=== PATIENT | male | born 1950 | race African-American/Black ===

== ENCOUNTER 2023-11-22 13:28 | Emergency (ER) | payer MEDICARE, SELFPAY ==
[2023-11-22] VITALS (15 sets, daily range): BP systolic 126–153; BP diastolic 63–87; PULSE 75–96; RESP 18–36; TEMP 36.6–36.9; O2SAT 97–99
--- NOTE | ~2023-11-22 | XR_ITS ---
EXAMINATION: XR chest 1V portable DATE: 11/22/2023 15:11 INDICATION: Dyspnea. TECHNIQUE: A single frontal view of the chest was obtained. COMPARISON: Chest 2 views 04/26/2014 FINDINGS: There is no pneumonia, pleural effusion, or pneumothorax. The heart size is normal. IMPRESSION: 1. No acute cardiopulmonary disease. Reviewed, dictated and finalized at location E.
--- NOTE | ~2023-11-22 | US_ITS ---
EXAMINATION: US venous doppler [facility] DATE: 11/22/2023 16:00 INDICATION: Lower limb swelling. TECHNIQUE: Grayscale ultrasound images without and with compression and Doppler ultrasound images of the bilateral lower extremity veins were obtained. COMPARISON: None. FINDINGS: The visualized portions of right common femoral vein, profunda (deep) femoral vein, femoral vein, pop liteal vein, peroneal veins, posterior tibial veins, and greater saphenous vein outflow are patent. The visualized portions of left common femoral vein, profunda femoral vein, femoral vein, popliteal v ein, peroneal veins, posterior tibial veins, and greater saphenous vein outflow are patent. IMPRESSION: 1. No deep venous thrombosis. Reviewed, dictated and finalized at location E.
--- NOTE | ~2023-11-22 | CT_ITS ---
EXAMINATION: CTA chest PE protocol DATE: 11/22/2023 16:15 INDICATION: Shortness of breath. TECHNIQUE: Computed tomography angiography (CTA) of the chest was performed with 100 mL Omnipaque-350 intravenous contrast timed to evaluate the pulmonary arteries. Coronal maximum intensity projection 3D-reconstructions were created by the technologist. Automated exposure control and iterative reconst ruction technique were employed. The dose-length product was 909.02 mGy-cm. COMPARISON: None. FINDINGS: There is mild emphysema. There is mild atelectasis bilaterally. There is a small right pleu ral effusion. The heart size is normal. No pericardial effusion. There is no pulmonary embolus. There is mild thoracic spondylosis. IMPRESSION: 1. No pulmonary embolus. 2. Small right pleural effusion. 3. Mild emphysema. Reviewed, dictated and finalized at location E.
--- NOTE | 2023-11-22 14:37 | ECG_ITS ---
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 Measurements Intervals [place] Rate: 79 P: 68 LA: 132 QRS: 70 QRSD: 90 T: 88 QT: 345 QTc: 396 Interpretive Statements SINUS RHYTHM NONSPECIFIC T-WAVE ABNORMALITY No previous ECG available for comparison Electronically Signed On 11-23-2023 12:04:26 CDT by Arjun Dan M.D.
[2023-11-22 15:07] LABS: Basophils Percent Auto 0.2 % (0.2-1.2); Eosinophils Absolute Auto 0.2 K/mm3 (0-0.3); Eosinophils Percent Auto 2.1 % (0-4.4); Hematocrit 23.5 % (42.0-52.0); Hemoglobin 7.5 g/dL (14.0-18.0); Immature Granulocyte Absolute 0.12 K/mm3 (0.00-0.031); Immature Granulocyte Percent A 1.3 % (0-0.5); Lymphocytes Absolute Auto 0.74 K/mm3 (0.9-3.2); Mean Corpuscular HGB Conc 31.9 g/dl (32-36); Mean Corpuscular Hemoglobin 29.6 pg (26-34); Mean Corpuscular Volume 92.9 fl (80-100); Mean Platelet Volume 9.1 fl (7.4-10.4); Monocytes Absolute Auto 0.7 K/mm3 (0.1-0.6); Monocytes Percent Auto 7.6 % (2.6-8.5); Neutrophils Absolute Auto 7.5 K/mm3 (1.3-6.7); Neutrophils Percent Auto 80.8 % (45.5-73.1); Nucleated Red Blood Cells Perc 0.3 % (0.0-0.2); Platelet Count Result 249 k/mm3 (150-375); Red Blood Count 2.53 M/mm3 (4.6-6.20); Red Cell Distribution Width 16.3 % (11.5-14.5); White Blood Count 9.3 K/mm3 (4.5-10.0)
[2023-11-22 15:16] LABS: Alanine Aminotransferase 10 U/L (6-50); Albumin Level 3.1 g/dL (3.5-5.1); Alkaline Phosphatase 74 U/L (38-126); Anion Gap 4 mmol/L (4-12); Aspartate Amino Transferase 20 U/L (17-59); Bilirubin,Total 0.8 mg/dL (0.2-1.3); Blood Urea Nitrogen 6 mg/dL (9-20); Calcium 8.1 mg/dL (8.4-10.2); Carbon Dioxide 30 mmol/L (22-30); Chloride 106 mmol/L (98-107); Estimated CRCL calculation 112 ml/min; Estimated Glomerular Filt Rate > 60; Glucose 116 mg/dL (65-110); Potassium 2.6 mmol/L (3.4-5.0); Sodium 140 mmol/L (137-145)
[2023-11-22 15:22] LABS: NT Pro B Type Natriuretic Pept 696 pg/mL (19.9-100)
--- NOTE | 2023-11-22 15:27 | ED.GENADULT ---
HPI - General Adult General Chief complaint: Shortness of Breath/Dyspnea Stated complaint: SOB, Leg Swelling Time Seen by Provider: 11/22/23 14:13 History of Present Illness HPI narrative: 73 old male presenting to the emergency department for evaluation for leg swelling and shortness of breath. Patient was just discharged from [facility] yesterday. Friday patient reports he had surgery to untangle is intestines, Friday she had returned surgery for a surgery on the actual intestines. Patient went back to surgery on Friday due to some bleeding he was having ultimately received 3 units transfused blood. Patient was discharged yesterday. Upon getting home family noticed that his legs were swollen. Patient feels legs have been swollen since Friday or . Patient states he does have history of asthma and has been using his albuterol inhaler more frequently. Patient denies any associated chest pain. Patient denies any prior history of DVT Related Data Home Medications Medication Instructions Recorded Confirmed cardioplegic no.32 (maint 8:1) 24 ml perfusion 01/04/20 mEq/300 mL (potassium) perfusion (Cardioplegia Maint 8:1 non-enrich) cholecalciferol (vitamin D3) 25 25 mcg PO DAILY 01/04/20 mcg (1,000 unit) capsule ferrous sulfate 325 mg (65 mg 325 mg PO DAILY 01/04/20 iron) tablet (Feosol) hydralazine 10 mg tablet 10 mg PO BID 01/04/20 montelukast 4 mg chewable tablet See Rx Instructions PO .COMPLEX 01/04/20 ggpktwex-iux-xzios acid 0.4 1 tablet PO DAILY 01/04/20 mg-lycopene 300 mcg-lutein 250 mcg tablet (Centrum Silver) multivitamin with iron (Daily 1 tablet PO DAILY 01/04/20 Vitamin with Iron tablet) omeprazole 20 mg capsule,delayed 20 mg PO DAILY 01/04/20 release propranolol 40 1 tablet PO DAILY 01/04/20 mg-hydrochlorothiazide 25 mg tablet sertraline 100 mg tablet 100 mg PO DAILY 01/04/20 triamcinolone acetonide 0.1 % 1 applic dental BID 01/04/20 dental paste triamcinolone acetonide 55 mcg 1 spray intranasal DAILY 01/04/20 nasal spray aerosol (Nasacort) [id number] pepper tablet PO 01/04/20 100 mg-200 unit-50 mg-800 mcg tablet vitamin B complex (B 1 tablet PO DAILY 01/04/20 Complex-Vitamin B12 tablet) wheat dextrin 3 gram/3.5 gram oral 1 packet PO DAILY 01/04/20 powder packet (Benefiber Clear Sugar Free(dextrin)) wheat dextrin 3 gram/4 gram oral 1.5 gm PO BID 01/04/20 powder (Benefiber Sugar Free (dextrin)) Allergies Allergy/AdvReac Type Severity Reaction Status Date / Time Penicillins Allergy Mild swelling Verified 01/04/20 13:26 eyelid, lips and hives Review of Systems Review of Systems: All systems reviewed & are unremarkable except as noted in HPI and below Exam Narrative: APPEARANCE: Well appearing, no pain, no distress, well-nourished. HEAD: normocephalic, atraumatic. EYES: PERRLA/EOMI, conjunctivae clear. NOSE: Normal no drainage EARS:TMS clear with good light reflex. THROAT: Pharynx clear, no exudate. NECK: Supple. No adenopathy, no masses. RESPIRATORY: Airway patent, respirations nonlabored. Clear to auscultation bilaterally, no rales, rhonchi, wheezing. CARDIOVASCULAR: Regular rate and rhythm without murmurs rubs or gallops. ABDOMINAL: Soft, nontender, nondistended, normal bowel sounds MUSCULOSKELETAL: Moves all extremities. Bilateral lower extremity pitting edema NEURO: Alert. Cranial nerves II through XII intact. Good gait. Good coordination SKIN: Warm, dry. Normal Color Course Vital Signs Vital signs: Vital Signs Temperature 98.5 F 11/22/23 13:29 Pulse Rate 83 11/22/23 13:29 Respiratory Rate 18 11/22/23 13:29 Blood Pressure 142/65 H 11/22/23 13:29 Pulse Oximetry 99 11/22/23 13:29 Oxygen Delivery Room Air 11/22/23 13:29 Temperature 97.8 F 11/22/23 17:46 Pulse Rate 91 11/22/23 17:46 Respiratory Rate 20 11/22/23 17:46 Blood Pressure 153/87 H
[2023-11-22] MEDS: KCL 20 MEQ/SW 100 ML 100 ML 50 MEQ IVPB (16:31)
[2023-11-22] MEDS: FUROSEMIDE INJ 40 MG/4 ML VIAL IV PUSH (16:32)
[2023-11-22] MEDS: POTASSIUM CHLORIDE 20 MEQ PACKET (FOR LIQUID) 40 MEQ PO ×2 (16:32→18:15)
--- NOTE | 2023-11-22 19:02 | PC.NURSE ---
BP cuff at this time while eating
--- NOTE | 2023-11-22 19:14 | PC.NURSE ---
Report received from MELODY Adams. Assumed care of patient at this time. Patient waiting for his potassium infusion to finish before discharge.
== END 2023-11-22 20:20 | disposition home or self-care (01) ==
PROVIDERS: Emergency Provider Emergency Medicine
DX: R60.0 Localized edema (principal); E87.6 Hypokalemia; D64.9 Anemia, unspecified
CPT/HCPCS: 36415; 71045; 71275; 80053; 83880; 85025; 93005; 93970; 96365; 96366; 96375; 99284; A9270; J1940; J3480; Q9967

== ENCOUNTER 2024-08-21 22:38 | Emergency (ER) | payer MEDICARE, SELFPAY ==
[2024-08-21 22:38] VITALS: BP 138/74; PULSE 74; RESP 17; TEMP 36.6; O2SAT 100
[2024-08-21 22:48] VITALS: O2SAT 100
[2024-08-21] MEDS: methylPREDNISolone SOD SUCC 125 MG VIAL IV PUSH (22:52)
[2024-08-21] MEDS: FAMOTIDINE 20 MG/2 ML VIAL IV PUSH (22:52)
[2024-08-21] MEDS: diphenhydrAMINE HCl INJ 50 MG/ML VIAL IV PUSH (22:53)
[2024-08-21] MEDS: ONDANSETRON INJ 4 MG/2 ML VIAL IV PUSH (22:58)
[2024-08-21] MEDS: TRANEXAMIC ACID 1,000 MG/10 ML AMPUL 1000 MG IV PUSH (23:00)
--- NOTE | 2024-08-21 23:31 | ED.ALLEREA ---
HPI - Allergic Reaction General Chief complaint: Allergic Reaction Stated complaint: ALLERGIC REACTION Time Seen by Provider: 08/21/24 22:39 History of Present Illness HPI narrative: Patient is a 74-year-old male who presents emergency department this evening complaining of upper lip swelling which he noticed when he woke up after a nap around 6:00 p.m. Patient states that he went to sleep around 3:30 p.m. and when he woke up he noticed some lip swelling. Patient admits that he is on lisinopril for blood pressure. Denies any similar symptoms in the past. Patient states that he has had mild swelling when he ate kd a few weeks ago and states that he has some kd today which he was concerned may have precipitated his. Denies any tongue swelling, difficulty breathing or any changes to his voice. No additional symptoms or concerns at this time. Related Data Home Medications ?Medication ?Instructions ?Recorded ?Confirmed ?Last Taken ?Type cardioplegic no.32 (maint 8:1) 24 ml perfusion 01/04/20 Unknown History mEq/300 mL (potassium) perfusion (Cardioplegia Maint 8:1 non-enrich) cholecalciferol (vitamin D3) 25 25 mcg PO DAILY 01/04/20 Unknown History mcg (1,000 unit) capsule ferrous sulfate 325 mg (65 mg 325 mg PO DAILY 01/04/20 Unknown History iron) tablet (Feosol) hydralazine 10 mg tablet 10 mg PO BID 01/04/20 Unknown History montelukast 4 mg chewable tablet See Rx Instructions PO .COMPLEX 01/04/20 Unknown History bmoclpyq-bld-trhhy acid 0.4 1 tablet PO DAILY 01/04/20 Unknown History mg-lycopene 300 mcg-lutein 250 mcg tablet (Centrum Silver) multivitamin with iron (Daily 1 tablet PO DAILY 01/04/20 Unknown History Vitamin with Iron tablet) omeprazole 20 mg capsule,delayed 20 mg PO DAILY 01/04/20 Unknown History release propranolol 40 1 tablet PO DAILY 01/04/20 Unknown History mg-hydrochlorothiazide 25 mg tablet sertraline 100 mg tablet 100 mg PO DAILY 01/04/20 Unknown History triamcinolone acetonide 0.1 % 1 applic dental BID 01/04/20 Unknown History dental paste triamcinolone acetonide 55 mcg 1 spray intranasal DAILY 01/04/20 Unknown History nasal spray aerosol (Nasacort) [id number] pepper tablet PO 01/04/20 Unknown History 100 mg-200 unit-50 mg-800 mcg tablet vitamin B complex (B 1 tablet PO DAILY 01/04/20 Unknown History Complex-Vitamin B12 tablet) wheat dextrin 3 gram/3.5 gram oral 1 packet PO DAILY 01/04/20 Unknown History powder packet (Benefiber Clear Sugar Free(dextrin)) wheat dextrin 3 gram/4 gram oral 1.5 gm PO BID 01/04/20 Unknown History powder (Benefiber Sugar Free (dextrin)) Allergies Allergy/AdvReac Type Severity Reaction Status Date / Time lisinopril Allergy Severe Swelling Verified 08/21/24 22:47 Penicillins Allergy Mild swelling Verified 08/21/24 22:47 eyelid, lips and hives Review of Systems Review of Systems: All systems are reviewed and are negative unless stated otherwise in the HPI. Exam Narrative: General: Alert, awake, afebrile, in no acute distress. HEENT: PERRL, no rhinorrhea, no post nasal drip, oropharynx clear, upper lip swelling consistent with angioedema, no tongue swelling, no evidence of any airway edema, no changes to voice. Neck: Trachea midline, no JVD, no lymphadenopathy. Cardiovascular: Regular rate and rhythm, no murmurs, rubs or gallops, no peripheral edema. Respiratory: Clear to auscultation bilaterally, no tachypnea, no wheezing, no rhonchi, no rubs, no respiratory distress. Abdomen: Soft, nontender, nondistended, no rebound, no guarding, no peritoneal signs. Musculoskeletal: No joint swelling or deformity, normal muscle tone. Skin: No rashes or petechia, no signs of infection. Psychiatric: Alert and oriented, normal behavior and judgment for situation. Neurological: Alert and oriented to person, place, and time. Follows all commands. No focal deficits, speech is clear and fluent. Course Vital Signs Vital signs: Vital Signs Temperature 97.8 F 08/21/24 22:38 Pulse Rate 74 08/21/24 22:38 Respiratory Rate 17 08/21/24 22:38 Blood Pressure 138/74 08/21/24 22:38 Pulse Oximetry 100 08/21/24 22:38 Oxygen Delivery Room Air 08/21/24 22:38 Temperature 97.8 F 08/22/24 04:15 Pulse Rate 93 08/22/24 04:15 Respiratory Rate 24 H 08/22/24 04:15 Blood Pressure 134/81 08/22/24 04:15 Pulse Oximetry 99 08/22/24 04:15 Oxygen Delivery Room Air 08/21/24 22:48 MDM - Allergic Reaction MDM Narrative Medical decision making narrative: The patient was evaluated by myself in the emergency department. History is obtained from patient who is an independent historian and physical exam was performed. External medical records were reviewed at this time. IV was established and pertinent tests were ordered. Patient was administered 125 mg of IV Solu-Medrol, 50 mg of IV Benadryl and 20 mg of IV Pepcid. Was also administered 1 g of TXA IV administered over 10 minutes and 2 units of FFP. Patient was observed in our emergency department for 5 hours with improvement of his symptoms. Symptoms are localized to the upper lip, no tongue swelling or any evidence of airway edema. Differential diagnosis considerations include allergic versus JUSTIN-inhibitor induced angioedema. Comorbidities impacting this visit include current lisinopril use. I have evaluated and discussed social determinants of health with the patient that could potentially impact subsequent diagnosis and treatment plans. On repeat assessment of the patient, reevaluation revealed that the patient is doing well and is in no acute distress. Patient symptoms have improved since he arrived to our emergency department. Repeat vital signs were all reviewed and noted to be stable. Differential diagnosis and treatment plan were discussed with the patient at bedside. Patient agrees with discussion and after shared medical decision making agrees with discharge. All questions were answered to the patient's satisfaction. Patient will follow up with his PCP in 3-5 days. Patient was provided with strict return precautions and instructed to return to the emergency department if any new or worsening symptoms develop. The patient was discharged in stable condition. Lab Data Labs: Lab Results 08/21/24 Range/Units 23:41 Blood Type A Positive Antibody Screen Negative Discharge Plan Discharge Clinical Impression: Angioedema, Swelling of upper lip Patient Disposition: Home, Self-Care Condition: Improved Instructions: Antibiotic Form, Angioedema (ED) Additional Instructions: You were evaluated in the emergency department this evening for your lip swelling and informed that this is called angioedema secondary to your lisinopril use and instructed that you can no longer take lisinopril after again as it could lead to recurrent episodes of angioedema which can cause airway occlusion and difficulty breathing. You will need to follow-up with your family doctor within the next 3 days to have your blood pressure medications switch to something else. Return to the emergency department if any new or worsening symptoms develop. Patient Language: Tajik Prescriptions: No Action triamcinolone acetonide [Nasacort] 55 mcg aerosol,spray 1 spray NASAL DAILY Rx Instructions: administer into each nostril omeprazole 20 mg capsule,delayed release(DR/EC) 20 mg PO DAILY propranolol-hydrochlorothiazid 40-25 mg tablet 1 tablet PO DAILY sertraline 100 mg tablet 100 mg PO DAILY hydralazine 10 mg tablet 10 mg PO BID montelukast 4 mg tablet,chewable See Rx Instructions PO .COMPLEX Rx Instructions: PO; triamcinolone acetonide 0.1 % paste 1 applic DENTAL BID Rx Instructions: use after food and/or drink and/or oral hygiene Benefiber Clear SF (dextrin) 3 gram/3.5 gram powder in packet 1 packet PO DAILY Rx Instructions: mix into at least 4 oz water or juice before administering multivitamin with iron [Daily Vitamin with Iron] Tablet 1 tablet PO DAILY Centrum Silver 0.4-300-250 mg-mcg-mcg tablet 1 tablet PO DAILY vitamin B complex [B Complex-Vitamin B12] Tablet 1 tablet PO DAILY vit [id number] ac-vmhq-gy-mcg tablet PO cholecalciferol (vitamin D3) 25 mcg (1,000 unit) capsule 25 mcg PO DAILY Benefiber Sugar Free (dextrin) 3 gram/4 gram powder 1.5 gm PO BID Rx Instructions: mix into at least 4 oz water or juice before administering Cardioplegia Main 8:1 no-enrch 24 mEq/300 mL (potassium) solution PERFUSION ferrous sulfate [Feosol] 325 mg (65 mg iron) tablet 325 mg PO DAILY Follow-up/Referrals: Amanda Vance DO [Physician] - 3 Days PHYSICIAN NOT ON STAFF,NONSTAFF [Primary Care Provider] - 3 Days Time of Disposition: 02:58
[2024-08-21 23:42] VITALS: BP 130/74; PULSE 68; RESP 27; O2SAT 100
--- NOTE | 2024-08-21 23:53 | PC.NURSE ---
Consent for plasma obtained
[2024-08-22] VITALS (11 sets, daily range): BP systolic 105–134; BP diastolic 57–81; PULSE 73–93; RESP 15–26; TEMP 36.4–36.8; O2SAT 95–100
[2024-08-22] MEDS: SODIUM CHLORIDE 0.9% IV 250 ML 30 ML IV CONT (01:45)
[2024-08-22] MEDS: TUBING, BLOOD PLUM PUMP TUBING 1 EACH XX (02:49)
== END 2024-08-22 05:19 | disposition home or self-care (01) ==
PROVIDERS: Emergency Provider Emergency Medicine
DX: T78.3XXA Angioneurotic edema, initial encounter (principal); T46.4X5A Adverse effect of angiotensin-converting-enzyme inhibitors, initial encounter; I10 Essential (primary) hypertension; Z79.899 Other long term (current) drug therapy
CPT/HCPCS: 36415; 36430; 86850; 86900; 86901; 96361; 96374; 96375; 99285; J1200; J2405; J2919; J7050; P9017

== ENCOUNTER 2024-10-25 22:30 | Observation (INO) | payer MEDICARE, SELFPAY ==
--- NOTE | ~2024-10-25 | CT_ITS ---
CT of the Abdomen and Pelvis: Indication: Lower GI bleed Technique: 2.5 mm axial scans were obtained through the abdomen and pelvis following intravenous adm inistration of 100 cc of Omnipaque 350. Dose reduction technique was used on this scan by utilizing a utomated exposure control and iterative reconstruction technique. The dose-length product (DLP) was 8 73.15 mGy-cm. Findings: Scans through the lung bases are unremarkable. Probable small hepatic cyst. The spleen, pancreas, gallbladder, adrenals and kidneys are within nelly l limits. There are atherosclerotic calcifications of the aorta. No lymphadenopathy. No bowel obstruction or bowel wall thickening. There is postoperative change of the sigmoid colon wit h colonic anastomosis present. Stool suggests constipation.. Images through the pelvis were performed. Urinary bladder unremarkable. No pelvic mass. No ascites. Impression: No distinct etiology for GI bleed seen. Postoperative changes of the sigmoid colon with suspected con stipation. Reviewed, dictated and finalized at location . Impression: No distinct etiology for GI bleed seen. Postoperative changes of the sigmoid co maia with suspected constipation.
--- OUTSIDE RECORDS SUMMARY | 2024-10-25 22:33 | XMS_ITS | Data Portability ---
Author Organization [place] - [facility], Main Office Address [address] [facility] [address] [place] [address] Care Team Providers Care Boil Off Worker Name Role Phone VIANEY SILVA Primary Care Provider Assessment No assessment recorded. Plan of Treatment Reminders Order Date Submit Date Provider Last Modified By Organization Details Last Modified Time Details Appointments None record ed. Lab None record ed. Referral None record ed. Procedures None record ed. Surgeries None record ed. Imaging None record ed. Medication Orders hydro2 5mg/li do10mg supp 019 08/27/19 19 INTERFACE [facility], [address] [facility] [address], [place], [place], [id number], 9 20:15:58 Patient TargetsNo targets recorded. Patient Instructions Encounter Date Encounter Id Patient Instructions Last Modified By Organization Details Last Modified Time 2018 [id number] constipation: care instructions Not available 07/05/2018 20:56:12 hemorrhoids: car e instructions Not available 07/05/2018 20:56:12 Patient counsele d to F/U immediately if temp. greater than 100.4, if is unable to urinate, increased rectal pain or any other concerns. Not available 07/05/2018 20:52:11 He will follow u p in 3 - 4 weeks and I will treat either his RP or RA (I doubt I will be able to treat both of them at 1 time). I discussed with him I do not know how many treatments we will do in this series - it just depends on how he does. If his bleeding does not improve, he may need to see a colon and rectal surgeon to consider a more invasive procedure (banding or surgery). On today's visit I spent a total of {{30 35 40 45* 50 55 60}} minutes [id number] with the patient and over 50% of this time was spent discussing treatment options, risks/benefits of each option and alternatives. Not available 07/05/2018 20:54:05 07/30/2018 [id number] constipation: care instructions Not available 07/30/2018 16:26:38 hemorrhoids: car e instructions Not available 07/30/2018 16:26:38 Patient counsele d to F/U immediately if temp. greater than 100.4, if is unable to urinate, increased rectal pain or any other concerns. Not available 07/30/2018 16:25:46 He will follow u p in 3 - 4 weeks and I will either retreat his LL or treat his RA (possibly both). We will probably do another couple of treatments after that but space them 6 - 8 weeks apart. Not available 07/30/2018 16:26:10 08/26/2018 [id number] constipation: care instructions Not available 08/26/2018 20:14:35 hemorrhoids: car e instructions Not available 08/26/2018 20:14:35 Patient counsele d to F/U immediately if temp. greater than 100.4, if is unable to urinate, increased rectal pain or any other concerns. Not available 08/26/2018 15:41:56 He will follow u p in 8 weeks and I will concentrate on his LL. I may be able to get some on his RA or RP. I discussed with him I want to see him every 8 weeks until we get his symptoms better. Not available 08/26/2018 20:16:11 10/21/2018 [id number] He will follow u p with me only as needed. Not available 10/21/2018 21:38:33 Reason for Referral None Reported. Problems Name Problem SNOMED Code Status Onset Date Resolution Date Notes Provider Name and Address Organization Details Recorded Time External hemorrhoids 72046277 Active 2012 MARTIN [facility]ira - [facility] 9 15:03:30 Pile easily reducible 692283489 Active 2012 Tx #1: 07/28/12 1.2 x 10 RPTx #2: 3 1.2 x 10 LLTx #3: 3 1.1 x 10 RATx #4: 3 1.2 x 10 RPTx #5: 3 1.2 x 10 LLTx #6: 3 1.1 x 8 RATx #7: 5 1.2 x 10 RPTx #8: 5 1.2 x 10 LLTx #9: 1.2 x 7 RATx #10: 1.2 x 8 LLTx #11: 1.2 x 8 RP and 1.2 x 5 RATx #12: 9 1.2 x 11 LLTx #13: 07/30/18 1.2 x 10 RPTx #14: 08/26/18 1.2 x 9 LL/: No Tx - He needs [facility] f[facility]ima[facility] mayi. [facility] 9 15:03:30 Constipation 88823088 Active 2018 Delfina Woods MD [address] [place] [address],[address], [place], [address], [facility] 9 20:49:49 History of polyp of colon 264452883 Active 2018 Perlita corado [facility] 9 15:03:30 Pile reducible with difficulty 408980180 Active 2018 Perlita corado [facility] 9 15:03:30 Problem Notes None recorded. Procedures Surgical History Date Name Laterality Status Provider Name and Address Organization Details Recorded Time 9 Colonoscopy completed Delfina Woods MD [address] [place] [address],[address], [place], [address], [facility] 05/24/2019 19:38:37 03/06/201 9 IRC completed Delfina Woods MD [address] [place] [address],[address], [place], [place], [address] [place] [address] Hemorrhoid [facility] 08/26/2018 20:13:18 9 IRC completed Delfina Woods MD [address] [place] [address],[address], [place], [place], [address] [place], [place] [address]oid [facility] 07/30/2018 16:23:44 9 IRC completed Delfina Woods MD [address] [place] [address],[address], [place], [place], [address] [place], [place] [address]oid [facility] 07/05/2018 20:46:21 6 Colonoscopy completed Delfina Woods MD [address] [place] [address],[address], [place], [place], [address] [place], [place] [address] [facility] 07/05/2018 20:42:51 1 Colonoscopy completed Delfina Woods MD [address] [place] [address],[address] [facility], [place], [place], [address] [place], [place] [address]oid [facility] 06/29/2018 18:48:27 Imaging Results None recorded. Procedure Notes None recorded. Medical Equipment None Reported. Allergies Allergen ID Allergen Name Allergen Category Reaction Reaction Severity Criticality Documentation Date Start Date Code Code System Note Provider Name and Address Organization Details Recorded Time 1895 Product containin g penicilli n (product) medicatio n Not available Not available Not available 2018 52052 8001 SNOMED [facility] 9 15:34:55 Medications Name Sig Start Date Stop Date Status Note LastModified by Organization Details LastModified Time [email or web address] [id number] Insert 1 suppository rectally TID prn 2018 active Not Available Not Available Not Avai lable hydralazine 10 mg tablet active Not Available Not Available Not Available sertraline 100 mg tablet active Not Available Not Available Not Available triamcinolon e acetonide 0.1 % topical cream active Not Available Not Available Not Available propranolol 10 mg tablet active Not Available Not Available Not Available triamterene 37.5 mg-hydrochlo rothiazide 25 mg tablet active Not Available Not Available Not Available omeprazole 20 mg capsule,guevara yed release active Not Available Not Available Not Available montelukast 10 mg tablet active Not Available Not Available Not Available sertraline active Not Available Not Av ailable Not Available omeprazole active Not Available Not Av ailable Not Available propranolol active Not Available Not A vailable Not Available hydralazine active Not Available Not A vailable Not Available montelukast active Not Available Not A vailable Not Available sildenafil active Not Available Not Av ailable Not Available triamterene active Not Available Not A vailable Not Available Vitals Date Recorded Body weight Body mass index (BMI) Body height Body temperature Respiratory rate Heart rate Systolic blood pressure Diastolic blood pressure Provider Name and Address Organization Details Last Updated DateTime 9 719322. 08 g 33.8 kg/m2 177.8 cm 97.9 [degF] 16 /min 73 /min 140 mm[Hg] 80 mm[Hg] [facility] 9 15:45:01 Date Recorded Body height Provider Name an d Address Organization Details Last Updated DateTime 07/30/2018 177.8 cm [facility] 07/30/2018 14:59:54 Date Recorded Body height Provider Name an d Address Organization Details Last Updated DateTime 08/26/2018 177.8 cm [facility] 08/26/2018 15:34:24 Date Recorded Body height Provider Name an d Address Organization Details Last Updated DateTime 10/21/2018 177.8 cm Perlitashanna Pedra[facility]Devlin [facility] 10/21/2018 14:53:01 Social History Question Answer Notes LastModified by Organizat ion Details LastModified Time Tobacco Smoking Status Former Smoker Quit 1988 Perlita [facility]lin [facility] 2018 15:38:41 How Much Tobacco Do You Chew? None [email or web address] Information not available 2018 Tobacco Amount/Day 2 Packs [email or web address] Information not available 2018 Alcohol Use Yes [email or web address] Information not available 2018 Alcohol Amount Occasional [email or web address] Information not available 2018 Caffeine Use No [email or web address] Informatio n not available 2018 Caffeine Type Coffee [email or web address] Informati on not available 2018 Caffeine Amount 2c/day [email or web address] Information not available 2018 Illicit Drug Use No [email or web address] Information not available 2018 Type Of Tobacco Cigs [email or web address] Information not available 2018 What Was The Date Of Your Most Recent Tobacco Screening? 10/21/2018 Information not available 01/14/2019 How Many Years Have You Smoked Tobacco? 19 [email or web address] Information not available 2018 Sex: Unknown Functional Status None recorded. Mental Status None recorded. Family History Relationship Description Onset Age of this Age Resolved Age Notes LastModified by Organization Details LastModified Time Mother Malignant tumor of breast 42 46 [email or web address] Not available 03/2019 15:38:08 Brother Malignant neoplasm of brain 68 68 [email or web address] Not available 03/2019 15:38:22 Medical History Condition Response Anxiety Disorder Y Asthma Y Reflux/GERD Y Sleep Apnea Y Hypertension Y Colon/Rectal Polyps Y Past Encounters Encounter ID Performer Location Encounter Start Date Encounter Closed Date Diagnosis/Indication Diagnosis SNOMED-CT Code Diagnosis ICD10 Code Diagnosis Note [id number] Delfina Woods MD Main Office [address] [facility] [address] [place] [address] 2018 15:26:29 2018 16:49:11 Pile easily reducible 000025932 K64.1 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 I reviewed full informed consent with him including risks/bene fits and alternativ es. He wanted to proceed with treatment. His 12th overall (1st in this series) treatment was done on his LL internal hemorrhoid . External hemorrhoids 239 43229 K64.4 These will improve with IRC. He understand s the only way to directly treat external hemorrhoid s would be with surgery and he does not wish to pursue this and his hemorrhoid s are not bad enough to require surgery. Constipation 91217378 K5 9.00 He of course needs to be eating a high fiber diet and drinking plenty of water. I reviewed the different fibers, stool softeners (docusate and Miralax) and stimulant laxatives (senna and bisacodyl - he should avoid taking these). He should take a stool softener and/or fiber to maintain soft BM's. History of polyp of colon 024783005 Z86.010 He thinks he is due for a colonoscop y this year. 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 His 13th overall (2nd in this series) treatment was done today on his RP internal hemorrhoid . External hemorrhoids 239 06256 K64.4 These will hopefully improve with IRC. He understand s the only way to directly treat external hemorrhoid s would be with surgery and he does not wish to pursue this and his hemorrhoid s are not bad enough to require surgery. Constipation 10243553 K5 9.00 He of course needs to be eating a high fiber diet and drinking plenty of water. For now he is going to just try to concentrat e on his diet. History of polyp of colon 182270843 Z86.010 He thinks he is due for a colonoscop y this year. 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 His 14th overall (3rd in this series) treatment was done today on his LL internal hemorrhoid . External hemorrhoids 239 17175 K64.4 Improved with IRC. He wanted to try the compounded hydrocorti sone/lidoc marco antonio suppositor ies. Constipation 20315474 K5 9.00 He of course needs to be eating a high fiber diet and drinking plenty of water. He should continue with the Bene Fiber. I wrote down docusate 100 mg gel caps - he can take up to 3 daily if needed. [id number] Delfina Woods MD Main Office [address] [facility] [address] [place] [address] 10/21/2018 14:48:38 10/21/2018 15:37:38 Pile reducible with difficulty 084242673 K64.2 I discussed with him that even though he has done well with infrared coagulatio n treatments over the years, I think we have reached the limit of what can be accomplish ed with IRC. He also had the heavy bleeding after his last treatment and continues to have light bleeding 2 months later. Given the size of his hemorrhoid s, I think he needs to at least talk to a surgeon about banding or possibly a hemorrhoid ectomy. I recommende d that he see Fariha Moon MD (Fajardo) (colon and rectal surgeon with [facility]) and gave him her contact tara see. He has appointmen t with his PCP in a couple of weeks and is going to discuss with him if there are any surgeons in [place] that he could see (I am not aware of any colon and rectal surgeons but do know there are some general surgeons who do hemorrhoid ectomies). I asked him to let me know who he ends up seeing so I can get records to them. Constipation 67938554 K5 9.00 He of course needs to be eating a high fiber diet and drinking plenty of water. He should continue with the Bene Fiber. He also needs to get the docusate 100 mg gel caps that we have discussed on his previous visits - he can take up to 3 daily if needed. History of polyp of colon 054902703 Z86.010 He thinks he is due for a colonoscop y this year. I advised he needs to discuss this with his PCP when he has his visit in a couple of weeks. Health Concerns Section Related Observation LastModified by Organization Jazmine alba LastModified Time None Recorded Concern Status LastModified by Organization Details LastModified Time None Recorded Advance Directives Directive None Recorded Payers Encounter Date Sequence Insurance Name Policy Number Policy Briseno Covered Member ID Briseno Member ID Guarantor Name 2018 1 [facility] (MEDICARE REPLACEMENT/A DVANTAGE - HMO) [id number] Wayne A Dace [id number] Wayne A Dace 07/30/2018 1 [facility] (MEDICARE REPLACEMENT/A DVANTAGE - HMO) [id number] [place] A Dace [id number] Wayne A Dace 08/26/2018 1 [facility] (MEDICARE REPLACEMENT/A DVANTAGE - HMO) [id number] Wayne A Dace [id number] Wayne A Dace 10/21/2018 1 [facility] (MEDICARE REPLACEMENT/A DVANTAGE - HMO) [id number] Wayne A Dace [id number] Wayne A Dace Notes Date Note Type Note Provider Name and Address Organization Details Recorded Time 2018 text/html See previous visits. He has been doing great since his last treatment on 05/05/15. He would see a minimal amount of bright red blood on the wipe only occasionally. He has no swelling or discomfort. His symptoms returned about 6 months ago and have worsened. He presents today for an evaluation and treatment if it will help. Bleeding: This is his main symptom. Initially (6 months ago) it was a small amount of bleeding but was persistent. Over the last 1 - 2 months the amount of blood with BM's has increased. Over the last 2 weeks he has had a large amount of blood in the water with a BM 3 times. It would take several minutes to get it to stop. He has not had the heavy bleeding for about 1 week. Pain: Not really Itching: Not really Discharge: It is always hard to get clean after BM's because of swelling and irritation. He has had some difficulty staying clean - he has had to re-wipe shortly after a BM. He has not had drainage bad enough that he has to wear a pad. Prolapse: Not that he feels External swelling: He does have some external swelling but it does not bother him. Discomfort: He has some minor external irritation/discomfo rt. He has internal pressure, a sense of being blocked when trying to have a BM and a sense of incomplete emptying after BM's. Previous Hemorrhoid Treatment: He has only had the C treatments here. Previous Lower GI Endoscopy: He had a colonoscopy in 2016 and had polyps. He will be due sometime this year he thinks. Bowel Habits: He has had long standing 2 - 3 times daily BM's and they are usually soft. He can have some firm BM's depending on his diet. He does take a stool softener when he needs to - he thinks he is taking docusate but it might be docusate with senna; he is not sure. Delfina Woods MD [address] [place] [address],[address], [place], [address], [facility] [place] 07/05/2018 20:56:15 07/30/2018 text/html Follow up: He is better than he had been before his treatment on 07/02. He has had episodes of bleeding with BM's but they have not been as heavy - he has mostly blood on the wipe and a few times slight drip in the water. He has had no leakage of blood in between BM's. He has had more discomfort and irritation over the last couple of weeks. He has been having more bowel irregularity. He states he does not recall me going through all of the OTC products (stool softeners, fiber and laxatives) at our last visit. He has not been taking any products. He admits his diet has been much more irregular - he will not eat all day and then eat at 8 pm. Delfina Woods MD [address] [place] [address],[address], [place], [address], [facility] [place] 07/30/2018 16:26:40 08/26/2018 text/html Follow up: He grant s still had discomfort with BM's and some after BM's. He has an ache and throbbing sensation. He takes ibuprofen and it does improve. He has tried Preparation H but it does not really help. His bleeding is significantly better. He has had no heavy bleeding. He has had some spots of dark blood on the wipe with some BM's (and this is getting less frequent). He still has some difficulty getting clean due to some swelling and irritation. He has a scant amount of leakage shortly after BM's but it does not last long and it is not very much. Overall he feels he is doing well. He did start a low dose of Bene Fiber and his BM's are better. He asks me again to write down the stool softener. Delfina Woods MD [address] [place] [address],[address], [place], [address], [facility] [place] 08/26/2018 20:16:42 10/21/2018 text/html Follow up: See l ast visit and phone note from 08/31/18. He states that the heavy bleeding did stop after the 2 episodes. He did go to the ER but states they didn't really do anything . He has had light bleeding with BM's on the wipe since the last treatment. He has no leakage of blood. He has had some swelling and discomfort especially after BM's and this can last for a few hours afterward. He has been taking Bene Fiber but still has not gotten the docusate like I have instructed him to do at his last few visits. His BM's can be somewhat firm. Delfina Woods MD [address] [facility],[address], [place], [address], [facility] [place] 10/21/2018 21:41:09
--- OUTSIDE RECORDS SUMMARY | 2024-10-25 22:33 | XMS_ITS | Encounter Summary ---
Author Organization [facility] Address [address] [place] [address] Care Team Providers Care Ichthyologist Name Role Phone Michael Black DO Primary Care Provider + Jnaeth Carrillo [facility] Unavailable Sunitha Jurado LPN Unavailable [phone] Encounter Details Date Type Department Care Team ([facility] st Contact Info) Description 11/14/2023 Telephone [facility] Primary Care [facility] [address] [address] Michael Black DO [address] [place] [address] Social History Tobacco Use Types Packs/Day Years Used Date Smoking Tobacco: Former Cigarettes 1.3 19 1 0 - 1988 Pipe Cigars Smokeless Tobacco: Never Alcohol Use Standard Drinks/Week Comments Not Currently 0 (1 standard drink = 0.6 oz pur e alcohol) AUDIT-C Answer Date Recorded Q1: How often do you have a drink containing alc ohol? Monthly or less 11/14/2023 Q2: How many drinks containi ng alcohol do you have on a typical day when you are drinking? 1 or 2 11/14/2023 Q3: How often do you have si x or more drinks on one occasion? Never 11/14/2023 PHQ-2 Answer Date Recorded PHQ-2 Total Score (If total score is 3 or more points, staff should administer the PHQ-9) 0 09/16/2022 Personal Safety Answer Date Recorded Have you ever been in or are you currently in a harmful physical or emotional relationship or is someone making you feel afraid or unsafe? Denies 11/14/2023 Sex and Gender Information Value Date Recorded Sex Assigned at Not on file Legal Sex Male 6:05 AM BRIM ROUNDER Gender Identity Male 12/12/2020 10:13 AM CDT Sexual Orientation Straight 12/12/2020 10 :13 AM CDT documented as of this encounter Functional Status * Audit-C Score Answer Date of Assessment Author 1 11/14/2023 2:37 PM JEAN PAULT Pan Hyde RN * Question Answer Date of Assessment Author Q1: How often do you have a drink containing alcohol? Monthly or less 11/14/2023 2:37 PM Linnette Canada RN Q2: How many drinks containing alcohol do you have on a typical day when you are drinking? 1 or 2 11/14/2023 2:37 PM Linnette Canada RN Q3: How often do you have six or more drinks on one occasion? Never 11/14/2023 2:37 PM Linnette Canada RN documented as of this encounter Plan of Treatment Not on file documented as of this encounter Visit Diagnoses Not on filedocumented in this encounter Care Teams Ichthyologist Relationship Specialty Start Date End Date Michael Black DO [address] [address] PCP - General Family Medicine 12/29/19 Janeth Carrillo RPh [address] [facility] [address] [address] [place] [address] Pharmacist Pharmacy 06/05/23 12/29/23 Sunitha Jurado LPN [address] [facility] [address] [facility] [address] [place] [address] [employer] 11/24/23 11/24/23 documented as of this encounter
--- OUTSIDE RECORDS SUMMARY | 2024-10-25 22:33 | XMS_ITS | Clinical Summary ---
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 7:02 PM TAX MANAGER us Michael Black DO LAB URINE ORDERABLES Fin al Result JOSHUA [address] [facility] Department [place] [address] * COLONOSCOPY (01/29/2023 2:01 PM CDT) Anatomical Region Laterality Modality Other Narrative Procedure Note Berenice Howe MD - 01/29/2023 2:01 PM CDT [facility] GI ENDOSCOPY Patient Name: Wayne Zhao Procedure Date: 01/29/2023 2:01 PM Date of : 1950 Admit Type: Outpatient Age: 72 Gender: Male Attending MD: Berenice Howe M.D. Room: [facility] ENDOSCOPY ROOM 05 Note Status: Finalized Procedure: Colonoscopy Indications: High risk colon cancer surveillance: Personalhistory of colonic polyps Referring MD: Providers: Berenice Howe M.D. Medicines: See the Anesthesia note for documentation of the administered medications Complications: No immediate complications. Estimated Blood Loss: Estimated blood loss was minimal. Procedure: The benefits, risks and alternatives of theprocedure and sedation were discussed and informed consentwas obtained. All questions were answered. Please referto the signed informed consent document in the medical record. The scope was passed under direct vision.The [id number] colonoscope was introduced through theanus and advanced to the cecum, identified byappendiceal orifice and ileocecal valve. The colonoscopy was performed without difficulty. The patient tolerated the procedure well. The quality of the bowel preparation was adequate to identify polyps 6 mmand larger in size. Findings: Hemorrhoids were found on perianal exam. Two polyps were found in the transverse colon. The polyps were 5 mmin size. These polyps were removed with a hot biopsy forceps. Resectionand retrieval were complete. Patient had significant retained stool that repeatedly clogged the scope, especially in the cecum. This limited evaluation for small lesions. Impression: - Hemorrhoids found on perianal exam. - Two 5 mm polyps in the transverse colon, removed with a hot biopsy forceps. Resected andretrieved. Recommendation: - Repeat colonoscopy in 3 years for surveillance. - No aspirin, ibuprofen, naproxen, or other non-steroidal anti-inflammatory drugs for 5 days. Berenice Howe M.D. Berenice Howe M.D. 01/29/2023 2:39:52 PM . Number of Addenda: 0 Note Initiated On: 01/29/2023 2:01 PM Recognized by the [place] [employer] for promoting quality in endoscopy us Berenice Howe MD ENDOSCOPY PROCEDURES Final Resul t * PSA screen (10/17/2022 2:35 PM CDT) PSA-Total 4.27 <=6.20 ng/mL JOSHUA BRAVO Comment: Interpretive Data AGE SEX REFERENCE INTERVAL 0 minutes-150 years Female None 0 minutes-49 years Male None 50-59 years Male 0-3.90 60-69 years Male 0-5.40 70-79 years Male 0-6.20 80-150 years Male 0-6.20 The Donaldo PSA Total assay procedure was used. Results from different manufacturers or methods may not be comparable. Serial testing should be performed using the same method. Current interpretive data last revised 21. Testing performed by: [address] [address] Blood 10/17/2022 2:35 PM CDT 10/17/2022 4:34 PM CDT Michael Henderson Black LAB BLOOD ORDERABLES Fin al Result Performing Organization Address [facility] [[email or web address]] de Phone Number [place] [phone] [facility] [employer] [place], [place] [phone] * (ABNORMAL) Hemoglobin A1c (10/17/2022 2:35 PM CDT) Hgb A1C 5.9(H) 4.0 - 5.6 % JOSHUA Comment:Testing performed by : [address] [address] Estimated Average Glucose 123 mg/dL JOSHUA Comment: The ADA recommends reporting an estimated Average Glucose (eAG) with all Hemoglobin A1c results using the equation derived from a study of 507 normal and diabetic adults. Minority populations were underrepresented and children were not included. (Diabetes Care 31:5916-5692, 2008). The eAG is not equivalent to a fasting glucose. Testing performed by: [address] [address] Blood 10/17/2022 2:35 PM CDT 10/17/2022 4:34 PM CDT Michael Black LAB BLOOD ORDERABLES Fin al Result Performing Organization Address [facility] [[email or web address]] de Phone Number [facility] [address] [facility] [place] [address] * Lipid panel (10/17/2022 2:35 PM CDT) Cholesterol 160 30 - 199 mg/dL JOSHUA Comment: Interpretive Data Ages < or = 19 years Acceptable: <170 mg/dL Borderline high: 170-199 mg/dL High: >or= 200 mg/dL Ages > or = 20 years Desirable: <200 mg/dL Borderline high: 200-239 mg/dL High: >or= 240 mg/dL Literature References: 1. Expert Panel on Integrated Guidelines for Cardiovascular Health and Risk Reduction in Children and Adolescents. Pediatrics 2011;128:S213 2. NCEP Expert Panel. Circulation 2004;110:227 Current Interpretive Data was last revised on 2018. Testing performed by: [address] [address] Triglycerides 83 <=149 mg/dL JOSHUA Comment: Interpretive Data Ages < or = 9 years Acceptable: <75 mg/dL Borderline high: 75-99 mg/dL High: >or= 100 mg/dL Ages 10 to 20 years Acceptable: <90 mg/dL Borderline high: 90-129 mg/dL High: >or= 130 mg/dL Ages > or = 20 years Desirable: <150 mg/dL Borderline high: 150-199 mg/dL High: 200-499 mg/dL Very high: >or= 499 mg/dL Literature References: 1. Expert Panel on Integrated Guidelines for Cardiovascular Health and Risk Reduction in Children and Adolescents. Pediatrics 2011;128:S213 2. NCEP Expert Panel. Circulation 2004;110:227 Current Interpretive Data was last revised on 2018. Testing performed by: [address] [address] HDL 49 >=40 mg/dL JOSHUA Comment: Interpretive Data Ages < or = 19 years Acceptable: >45 mg/dL Borderline low: 40-45 mg/dL Low: <40 mg/dL Ages > or = 20 years Desirable: >or= 60 mg/dL Low: <40 mg/dL Literature References: 1. Expert Panel on Integrated Guidelines for Cardiovascular Health and Risk Reduction in Children and Adolescents. Pediatrics 2011;128:S213 2. NCEP Expert Panel. Circulation 2004;110:227 Current Interpretive Data was last revised on 2018. Testing performed by: [address] [address] LDL, calculated 94 <=129 mg/dL JOSHUA Comment: Interpretive Data Ages < or = 19 years Acceptable: <110 mg/dL Borderline high: 110-129 mg/dL High: >or= 130 mg/dL Ages > or = 20 years Optimal: <100 mg/dL Near optimal: 100-129 mg/dL Borderline high: 130-159 mg/dL High: >160 mg/dL Literature References: 1. Expert Panel on Integrated Guidelines for Cardiovascular Health and Risk Reduction in Children and Adolescents. Pediatrics 2011;128:S213 2. NCEP Expert Panel. Circulation 2004;110:227 Current Interpretive Data was last revised on 2018. Testing performed by: [address] [address] Non-HDL Cholesterol 111 mg/dL JOSHUA Comment: Interpretive Data Ages < or = 19 years Acceptable: <120 mg/dL Borderline high: 120-144 mg/dL High: >145 mg/dL Ages > or = 20 years When triglycerides are >200 mg/dL, Non-HDL cholesterol is a secondary target of therapy with treatment goals that are 30 mg/dL greater than the LDL cholesterol target. Literature References: 1. Expert Panel on Integrated Guidelines for Cardiovascular Health and Risk Reduction in Children and Adolescents. Pediatrics 2011;128:S213 2. NCEP Expert Panel. Circulation 2004;110:227 Current Interpretive Data was last revised on 2018. Testing performed by: [address] [address] Chol/HDL ratio 3 JOSHUA Comment:Testing performed by : [address] [address] Blood 10/17/2022 2:35 PM CDT 10/17/2022 4:34 PM CDT Narrative JOSHUA - 10/17/2022 5:52 PM CDT Has the patient been fasting for 8 hours or more?->Yes us Michael Black DO LAB BLOOD ORDERABLES Fin al Result JOHSUA BRAVO [address] [facility] [place] [address] * Hepatitis C antibody (10/31/2021 5:22 PM CDT) Hep C Ab Nonreactive Nonreactive JOSHUA BRAVO Comment: Interpretive Data Nonreactive: Antibodies to HCV not detected. Does NOT exclude the possibility of recent exposure to HCV. Equivocal: Equivocal for HCV antibodies. Supplemental molecular testing will be automatically performed to determine infection status in accordance with current CDC screening recommendations. Reactive: Positive for HCV antibodies. This may represent current or past HCV infection. Supplemental molecular testing will be automatically performed to determine current infection status in accordance with current CDC screening recommendations. Interpretive data was last revised on 2019. Blood 10/31/2021 5:22 PM CDT 10/31/2021 6:34 PM CDT us Michael Black DO LAB MICROBIOLOGY - GENER AL ORDERABLES Final Result JOSHUA BRAVO [address] [facility] Department [place] [address] from Last 3 Months or Most Recently Relevant to Health Maintenance Insurance [facility] MEDICARE ADVANTAGE [facility] MEDICARE ADVANTAGE [facility] MEDICARE ADVANTAGE Advance Directives For more information, please contact: [phone] * Full Code (Latest Code Status on File) Date Activated Date Inactivated Comments 11/19/2023 12:55 PM 11/21/2023 5:00 PM * Full Code Date Activated Date Inactivated Comments 11/10/2023 2:25 PM 11/19/2023 12:55 PM * Full Code Date Activated Date Inactivated Comments 11/10/2023 6:39 AM 11/10/2023 2:25 PM Care Teams Frame Polisher Relationship Specialty Start Date End Date Micheal Black DO [address] [address] PCP - General Family Medicine 12/29/19
--- OUTSIDE RECORDS SUMMARY | 2024-10-25 22:33 | XMS_ITS | Encounter Summary ---
Author Organization [facility] Facility Care Team Providers Care Rehabilitation Services Counselor Name Role Phone Michael Black DO Primary Care Provider + Janeth Carrillo [facility] Unavailable Sunitha Jurado LPN Unavailable [phone] Encounter Details Date Type Department Care Team (Latest Contact Info) Description 2018 Orders Only [facility] CLINCONV ProviderPlacido MD [address] [place] [address] Social History Tobacco Use Types Packs/Day Years Used Date Smoking Tobacco: Former Sex and Gender Information Value Date Recorded Sex Assigned at Not on file Legal Sex Male 6:05 AM DAY CARE CENTER DIRECTOR Gender Identity Male 12/12/2020 10:13 AM CDT Sexual Orientation Straight 12/12/2020 10 :13 AM CDT documented as of this encounter Plan of Treatment Not on file documented as of this encounter Procedures Procedure Name Priority Date/Time Associated Diagnosis Comments PROCEDURE - RESULT 07/07/2018 12 :00 AM DAY CARE CENTER DIRECTOR documented in this encounter Results * PROCEDURE - RESULT (07/07/2018 12:00 AM DAY CARE CENTER DIRECTOR) Narrative 07/07/2018 12:00 AM DAY CARE CENTER DIRECTOR Ordered by an unspecified provider. us Historical Provider MD Final Res ult documented in this encounter Visit Diagnoses Not on filedocumented in this encounter Care Teams Rehabilitation Services Counselor Relationship Specialty Start Date End Date Michael Black DO [address] [address] PCP - General Family Medicine 12/29/19 Janeth Carrillo RPh [address] [place] [address] [address] [place] [address] Pharmacist Pharmacy 06/05/23 12/29/23 Sunitha Jurado LPN [address] [place] [address] [address] [place] [address] Assembler Equipment 11/24/23 11/24/23 documented as of this encounter
--- OUTSIDE RECORDS SUMMARY | 2024-10-25 22:33 | XMS_ITS | Referral Summary ---
Author Organization [facility] Address [address] [place] [address] Care Team Providers Care Friction Welding Machine Operator Name Role Phone Michael Black DO Primary Care Provider + Encounters Date Type Department Care Team Description 08/30/2024 7:30 AM CDT Office Visit [facility] Primary [facility] [address] [place] [address] [place] [phone] Michael Black DO Primary hypertension (Primary Dx); Type 2 diabetes mellitus without complication, without long-term current use of insulin (HCC); DAMIAN (obstructive sleep apnea); Parkinson's disease with dyskinesia and fluctuating manifestations (HCC); Essential hypertension 08/23/2024 Telephone [facility] [address] [place] [address] [place] [phone] Michael Black DO Appointment Request 08/11/2024 Telephone [facility] Pulmonology [address] [place] [address] [place] [phone] Delaney Plummer MA from Last 3 Months Allergies Active Allergy Reactions Criticality Noted Date [...] 03/15/2020 Assessment & Plan (05/29/2022 4:38 PM FISCAL CLERK): Impression: Diabetes mellitus with good glucose control. [...] mg. Assessment & Plan (05/29/2022 4:39 PM FISCAL CLERK): Impression: Chronic hypertension, controlled medications. Blood pressure [...] month. Assessment & Plan (05/29/2022 4:38 PM FISCAL CLERK): Impression: Patient complains of pain and tenderness [...] proceed. Assessment & Plan (05/01/2022 11:10 AM FISCAL CLERK): Impression: Painful varicose veins of both lower [...] fasting glucose) 07/22/2018 09/04/2020 Palpitations 05/10/2014 02/14/2020 Immunizations Immunization Administration Dates Next Due Influenza, Quad, Adjuvantate d, Intramuscular 07/12/2021 Influenza, Quadrivalent, Carmen l Culture-based MDCK, Preservative Free, Antibiotic Free, Intramuscular 04/17/2022 Influenza, Unspecified 04/23/2024(Deferr ed: Patient decision),04/23/2019 Pneumococcal Polysaccharide PPV23 08/29/2014 Tdap 06/23/2010 ZOSTER Recombinant 11/22/2022 Social History Tobacco Use Types Packs/Day Years [...] on file Legal Sex Male 6:05 AM FISCAL CLERK Gender Identity Male 12/12/2020 10:13 AM CDT Sexual Orientation Straight 12/12/2020 10 :13 AM CDT Last Filed Vital Signs Vital Sign Reading [...] 08/30/2024 7:32 AM CDT Plan of Treatment Not on file Medical Devices Implanted Type Area Die Mechanic Device Identifier Shelf Expiration Date Model / [...] CREATININE RATIO, URINE Routine 07/21/2023 6:15 PM FISCAL CLERK Type 2 diabetes mellitus without complication, without [...] Diabetic Eye Exam (03/02/2024 8:31 AM CDT) us Historical Provider HEALTH MAINTENANCE Final Result * [...] was last reviewed 2021. Testing performed by: [facility], [address] [place] [address], [place]., [address] Blood 11/28/2023 11:1 2 AM CDT 11/28/2023 1:46 PM CDT us Caryl Snyder MOBILE MARKETING MANAGER LAB BLOOD ORDERABLES Final Res ult [facility] [address] [employer] Department [place] [address] * Flexible Sigmoidoscopy (11/19/2023 3:09 PM CDT) Anatomical Region Laterality Modality Other Narrative Procedure Note Modesta Moseley MD - 11/19/2023 3:09 PM CDT [facility] Patient Name: Wayne Zhao Procedure Date: 11/19/2023 3:09 PM Date of : 1950 Admit Type: Inpatient Age: 73 Gender: Male Attending MD: Modesta Moseley M.D. Room: [facility] ENDOSCOPY Note Status: Finalized Procedure: Flexible Sigmoidoscopy Indications: Hematochezia Referring MD: Forest Graves M.D. Providers: Modesta Moseley M.D., Marty Norman M.D. Comorbidities 73 y.o. male DM, GERD, HTN, asthma, mood disorder, history of adenomatous colon polyps, chronic constipation, paget's disease ofthe breast, HLD who was admitted to [facility] on 11/10/2023 as transfer from outside [...] and informed consentwas obtained. The GIF [id number] endoscope was introduced through the anus and [...] 0 Note Initiated On: 11/19/2023 3:09 PM Modesta Moseley MD ENDOSCOPY PROCEDURES Final Result * CT Abdomen Pelvis W WO Contrast (11/17/2023 10:49 AM CDT) Anatomical Region Laterality Modality Body N/A Computed Tomogra phy 11/17/2023 11:2 1 AM CDT Impressions 11/17/2023 1:02 PM CDT No evidence of active gastrointestinal hemorrhage. Postoperative changes of sigmoid colectomy with diffuse colonic dilatation likely related to postoperative ileus. Dictated by: Yuli Camacoh M.D. The radiology attending physician has personally [...] Albumin Creatinine Ratio, Urine (07/21/2023 6:15 PM FISCAL CLERK) Albumin Ur 48.0 mg/L JOSHUA BRAVO Comment: Interpretive Data No reference range established. Current interpretive data was last revised 2018. Testing performed by: [facility] [address] [address] Creatinine Ur 86.6 mg/dL JOSHUA Comment: Interpretive Data No reference range established. Current interpretive data was last revised 2018. Testing performed by: [address] [address] Albumin Creatinine Ratio, Ur 55(H) 1 - 29 mg/g JOSHUA Comment:Testing performed by : [address] [address] Urine 07/21/2023 6:15 PM FISCAL CLERK 07/21/2023 7:02 PM FISCAL CLERK us Michael Black DO LAB URINE ORDERABLES Fin al Result JOSHUA [address] [facility] Department [place] [address] * COLONOSCOPY (01/29/2023 2:01 PM CDT) Anatomical Region Laterality Modality Other Narrative Procedure Note Berenice Howe MD - 01/29/2023 2:01 PM CDT [facility] GI ENDOSCOPY Patient Name: Wayen Zhao Procedure Date: 01/29/2023 2:01 PM Date of : 1950 Admit Type: Outpatient Age: 72 Gender: Male Attending MD: Berenice Howe M.D. Room: [facility] ENDOSCOPY ROOM 05 Note Status: Finalized Procedure: [...] On: 01/29/2023 2:01 PM Recognized by the [place] [employer] [place] [employer] Gastrointestinal Endoscopy for promoting quality in endoscopy Berenice Howe MD ENDOSCOPY PROCEDURES Final Resul t * PSA screen (10/17/2022 2:35 PM CDT) PSA-Total 4.27 <=6.20 ng/mL JOSHUA Comment: Interpretive Data AGE SEX REFERENCE INTERVAL [...] data last revised 21. Testing performed by: [address] [address] Blood 10/17/2022 2:35 PM CDT 10/17/2022 4:34 PM CDT Michael Black DO LAB BLOOD ORDERABLES Fin al Result [facility] [address] [facility] Department [place] [address] * (ABNORMAL) Hemoglobin A1c (10/17/2022 2:35 PM CDT) Hgb A1C 5.9(H) 4.0 - 5.6 % JOSHUA Comment:Testing performed by : [address] [address] Estimated Average Glucose 123 mg/dL JOSHUA Comment: The ADA recommends reporting an estimated Average Glucose (eAG) with all Hemoglobin A1c results using the equation derived from a study of 507 normal and diabetic adults. Minority populations were underrepresented and children were not included. (Diabetes Care 31:7600-0026, 2008). The eAG is not equivalent to a fasting glucose. Testing performed by: [address] [address] Blood 10/17/2022 2:35 PM CDT 10/17/2022 4:34 PM CDT us Michael Black DO LAB BLOOD ORDERABLES Fin al Result JOSHUA BRAVO [address] [facility] Department [place] [address] * Lipid panel (10/17/2022 2:35 PM CDT) [...] last revised on 2018. Testing performed by: [address] [address] Triglycerides 83 <=149 mg/dL JOSHUA Comment: Interpretive [...] last revised on 2018. Testing performed by: [address] [address] HDL 49 >=40 mg/dL JOSHUA Comment: Interpretive [...] last revised on 2018. Testing performed by: [address] [address] LDL, calculated 94 <=129 mg/dL JOSHUA Comment: [...] last revised on 2018. Testing performed by: [address] [address] Non-HDL Cholesterol 111 mg/dL JOSHUA Comment: Interpretive [...] last revised on 2018. Testing performed by: [address] [address] Chol/HDL ratio 3 JOSHUA Comment:Testing performed by : [address] [address] Blood 10/17/2022 2:35 PM CDT 10/17/2022 4:34 PM CDT Narrative JOSHUA - 10/17/2022 5:52 PM CDT Has the patient been fasting for 8 hours or more?->Yes Michael Black DO LAB BLOOD ORDERABLES Fin al Result Performing Organization Address [facility] de Phone Number JOSHUA [facility] [place] [address] * Hepatitis C antibody (10/31/2021 5:22 PM CDT) Hep C Ab Nonreactive Nonreactive JOSHUA Comment: Interpretive Data Nonreactive: Antibodies to HCV [...] 5:22 PM CDT 10/31/2021 6:34 PM CDT Michael Black DO LAB MICROBIOLOGY - GENER AL ORDERABLES Final Result Performing Organization Address [facility] de Phone Number JOSHUA [facility] [place] [address] from Last 3 Months or Most Recently Relevant to Health Maintenance Insurance [facility] MEDICARE ADVANTAGE [facility] MEDICARE ADVANTAGE [facility] MEDICARE ADVANTAGE Advance Directives For more information, please contact: [phone] * Full Code (Latest Code Status on File) Date Activated Date Inactivated Comments 11/19/2023 12:55 PM 11/21/2023 5:00 PM * Full Code Date Activated Date Inactivated Comments 11/10/2023 2:25 PM 11/19/2023 12:55 PM * Full Code Date Activated Date Inactivated Comments 11/10/2023 6:39 AM 11/10/2023 2:25 PM Care Teams Friction Welding Machine Operator Relationship Specialty Start Date End Date Black, Michael Henderson, DO [address] [id number] PCP - General Family Medicine 12/29/19
--- OUTSIDE RECORDS SUMMARY | 2024-10-25 22:33 | XMS_ITS | Clinical Summary ---
Author Organization [facility] Address [address] [place] [address] Care Team Providers Care Rope Cutter Name Role Phone BlackMichael walker Primary Care Provider [phone] Allergies Active Allergy Reactions Criticality Noted Date Comments Penicillins Hives,Swelling,Angioedema 8 Lips swell Medications hydrALAZINE 10 MG tablet Take 10 mg by mouth 2 (two) times a day. 01/11/2018 Active triamcinolone 0.1 % cream as needed. 12/29/2017 Active Ferrous Sulfate (IRON) 325 (65 Fe) MG tablet Take 325 mg by mouth daily with breakfast. Active Cyanocobalamin (V-R VITAMIN B-12) 500 MCG Tab Active Cholecalciferol (VITAMIN D) 2000 units Tab Activ e montelukast (SINGULAIR) 10 MG tablet Take by mouth nightly at bedtime. Active omeprazole 40 MG capsule Take 40 mg by mouth daily. Active propranolol 10 MG tablet Take 10 mg by mouth 3 (three) times daily. Active sertraline 100 MG tablet Take 100 mg by mouth daily. Active lisinopril-hydr ochlorothiazide 20-25 MG tablet daily 11/25/2013 Act sukhjinder Multiple Vitamins-Minera ls (CENTRUM SILVER ULTRA MENS) Tab daily 02/09/2016 Active fluticasone furoate-vilante rol 100-25 MCG/INH inhaler Inhale 1 puff into the lungs daily. 05/12/2020 Active metFORMIN 500 MG tablet Take 500 mg by mouth daily with breakfast. Active triamterene-hyd roCHLOROthiazid e 37.5-25 MG tablet Take 1 tablet by mouth daily. Active Hospital, Clinic, or Other Facility Administered Medication Ordered Dose Route Frequency Start Date End Date Status ciprofloxacin (CIPRO) tablet 500 mgIndications:Postinfective bulbous urethral stricture 500 mg OR Once 01/26/2020 Active Active Problems Problem Noted Date Diagnosed Date Postinfective bulbous urethral stricture 019 Pelvic pain in male 01/11/2019 Family History Medical History Relation Comments Diabetes Daughter (her mom was IDD M Type I Hypertension Daughter Heart Disease Father Cancer Mother breast Cancer Sister 1 Cancer Sister 2 of femal organs Hypertension Sister 2 Relation Status Comments Brother 1 (Age 36) choked in his sleep Brother 2 (Age 69) brain cancer Brother 3 Alive Daughter Alive Father (Age 61) heart attack Mother (Age 49) breast cancer Sister 1 Alive Sister 2 Alive Social History Tobacco Use Types Packs/Day Years Used Date Smoking Tobacco: Former Cigarettes 3 16 1 07/16/1981 - 05/16/1998 Smokeless Tobacco: Never Comments:also smoked a pipe for 4 or 5 years Alcohol Use Standard Drinks/Week Comments Yes 0 (1 standard drink = 0.6 oz pur e alcohol) rarely drinks alcohol PHQ-2 Answer Date Recorded PHQ-2 Score - If the patient scores above 3, please move on to questions 3-9 0 07/30/2021 Sex and Gender Information Value Date Recorded Sex Assigned at Not on file Legal Sex Male 5:14 PM CDT Gender Identity Male 07/30/2021 4:25 AM PHOTO TUBE ASSEMBLER Sexual Orientation Straight 07/30/2021 4: 25 AM PHOTO TUBE ASSEMBLER Last Filed Vital Signs Vital Sign Reading Time Taken Comments Blood Pressure 145/87 07/30/2021 11:30 AM PHOTO TUBE ASSEMBLER Pulse 77 07/30/2021 11:02 AM PHOTO TUBE ASSEMBLER Temperature 36.4 C (97.6 F) 07/30/2021 11:02 AM PHOTO TUBE ASSEMBLER Respiratory Rate 18 02/19/2018 4:55 PM CDT Oxygen Saturation 94% 07/30/2021 11:02 AM PHOTO TUBE ASSEMBLER Room Air Inhaled Oxygen Concentration - - Weight 109.8 kg (242 lb) 02/20/2022 11:14 AM CDT Height 177.8 cm (5' 10 ) 02/20/2022 11:14 AM CDT Body Mass Index 34.72 02/20/2022 11:14 AM CDT Plan of Treatment Health Maintenance Due Date Last Done Comments Colorectal Cancer Screening Colonoscopy (10 Years) 1950 Hepatitis C 1967 Zoster Vaccines (1 of 2) 1999 Annual Medicare Wellness Visit 2014 Pneumococcal Vaccine: 50+ Ye ars (2 of 2 - PCV) 08/30/2015 08/29/2014 DTaP, Tdap and Td Vaccines ( 2 - Td or Tdap) 06/23/2020 06/23/2010 COVID-19 Vaccine (1 - 2023-2 5 season) 2024 RSV Immunization or 60+ Years (1 - 1-dose 75+ series) 2024 Meningococcal B Vaccine Aged Out No l onger eligible based on patient's age to complete this topic Meningococcal Vaccine Aged Out No maia keke eligible based on patient's age to complete this topic RSV Immunizations Under 20 Months Aged Out No longer eligible based on patient's age to complete this topic Insurance [facility] Advance Directives * Full Code (Latest Code Status on File) Date Activated Date Inactivated Comments 02/19/2018 3:54 PM 02/19/2018 7:12 PM * Full Code Date Activated Date Inactivated Comments 02/19/2018 1:05 PM 02/19/2018 3:54 PM Care Teams Rope Cutter Relationship Specialty Start Date End Date Michael Black DO [address] [place] [address] PCP - General FAMILY PRACTICE 02/05/18
[2024-10-25 22:41] VITALS: BP 129/80; PULSE 106; RESP 18; TEMP 36.6; O2SAT 97
[2024-10-25 23:19] LABS: Basophils Percent Auto 0.2 % (0.2-1.2); Eosinophils Absolute Auto 0.1 K/mm3 (0-0.3); Eosinophils Percent Auto 1.7 % (0-4.4); Hematocrit 42.7 % (42.0-52.0); Hemoglobin 13.7 g/dL (14.0-18.0); Immature Granulocyte Absolute 0.02 K/mm3 (0.00-0.031); Immature Granulocyte Percent A 0.3 % (0-0.5); Lymphocytes Absolute Auto 1.08 K/mm3 (0.9-3.2); Lymphocytes Percent Auto 18.9 % (18.3-44.2); Mean Corpuscular HGB Conc 32.1 g/dl (32-36); Mean Corpuscular Hemoglobin 27.6 pg (26-34); Mean Corpuscular Volume 85.9 fl (80-100); Mean Platelet Volume 10.2 fl (7.4-10.4); Monocytes Absolute Auto 0.5 K/mm3 (0.1-0.6); Monocytes Percent Auto 9.1 % (2.6-8.5); Neutrophils Percent Auto 69.8 % (45.5-73.1); Platelet Count Result 239 k/mm3 (150-375); Red Blood Count 4.97 M/mm3 (4.6-6.20); Red Cell Distribution Width 13.4 % (11.5-14.5); White Blood Count 5.7 K/mm3 (4.5-10.0)
--- OUTSIDE RECORDS SUMMARY | 2024-10-25 23:19 | XMS_ITS | Encounter Summary ---
Author Organization [facility] Address [address] [place] [address] Care Team Providers Care Risk Professional Name Role Phone Michael Black DO Primary Care Provider + Janeth Carrillo [facility] Unavailable Sunitha Jurado LPN Unavailable [phone] Encounter Details Date Type Department Care Team ([facility] st Contact Info) Description 11/14/2023 Telephone [facility] Medical Group Primary Care 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
--- OUTSIDE RECORDS SUMMARY | 2024-10-25 23:19 | XMS_ITS | Referral Summary ---
Author Organization [facility] Address [address] [place] [address] Care Team Providers Care Home Restoration Service Supervisor Name Role Phone Michael Black DO Primary Care Provider + Encounters Date Type Department Care Team Description 08/30/2024 7:30 AM CDT Office Visit [facility] Primary Care [address] [place] [address] [place] [phone] Michael Black DO Primary hypertension (Primary Dx); Type 2 diabetes mellitus without complication, without long-term current use of insulin (HCC); DAMIAN (obstructive sleep apnea); Parkinson's disease with dyskinesia and fluctuating manifestations (HCC); Essential hypertension 08/23/2024 Telephone [facility] Primary Care [address] [place] [address] [place] [phone] Michael Black DO Appointment Request 08/11/2024 Telephone [facility] Pulmonology [address] [place] [address] [place] [phone] Delaney Plummer MA from Last 3 [...] 03/15/2020 Assessment & Plan (05/29/2022 4:38 PM WARP PICKER): Impression: Diabetes mellitus with good glucose control. [...] mg. Assessment & Plan (05/29/2022 4:39 PM WARP PICKER): Impression: Chronic hypertension, controlled medications. Blood pressure [...] month. Assessment & Plan (05/29/2022 4:38 PM WARP PICKER): Impression: Patient complains of pain and tenderness [...] proceed. Assessment & Plan (05/01/2022 11:10 AM WARP PICKER): Impression: Painful varicose veins of both lower [...] on file Legal Sex Male 6:05 AM WARP PICKER Gender Identity Male 12/12/2020 10:13 AM CDT [...] on file Medical Devices Implanted Type Area Gill Box Tender Device Identifier Shelf Expiration Date Model / [...] CREATININE RATIO, URINE Routine 07/21/2023 6:15 PM WARP PICKER Type 2 diabetes mellitus without complication, without [...] was last reviewed 2021. Testing performed by: [facility], [address] [place] [address], [place]., [address] Blood 11/28/2023 11:1 2 AM CDT 11/28/2023 1:46 PM CDT us Caryl Snyder MUSHROOM GROWER LAB BLOOD ORDERABLES Final Res ult [facility] [address] Department [place] [address] * Flexible Sigmoidoscopy (11/19/2023 3:09 [...] ofthe breast, HLD who was admitted to [facility] on 11/10/2023 as transfer from outside [...] and informed consentwas obtained. The GIF [id number] endoscope was introduced through the anus and [...] Albumin Creatinine Ratio, Urine (07/21/2023 6:15 PM WARP PICKER) Albumin Ur 48.0 mg/L JOSHUA BRAVO Comment: Interpretive Data No reference range established. Current interpretive data was last revised 2018. Testing performed by: [facility] [address] [address] Creatinine Ur 86.6 mg/dL JOSHUA Comment: Interpretive Data No reference range established. Current interpretive data was last revised 2018. Testing performed by: [address] [address] Albumin Creatinine Ratio, Ur 55(H) 1 - 29 mg/g JOSHUA Comment:Testing performed by : [address] [address] Urine 07/21/2023 6:15 PM WARP PICKER 07/21/2023 7:02 PM WARP PICKER us Michael Black DO LAB URINE ORDERABLES Fin al Result JOSHUA [address] [facility] Department [place] [address] * COLONOSCOPY (01/29/2023 2:01 PM CDT) Anatomical Region Laterality Modality Other Narrative Procedure Note Berenice Howe MD - 01/29/2023 2:01 PM CDT [facility] GI ENDOSCOPY Patient Name: Wayne Zhao Procedure Date: 01/29/2023 2:01 PM Date of : 1950 Admit Type: Outpatient Age: 72 Gender: Male Attending MD: Berenice Howe M.D. Room: [facility] ENDOSCOPY ROOM 05 Note Status: [...] for 5 days. Berenice Howe M.D. Berenice Hoew M.D. 01/29/2023 2:39:52 PM . Number of Addenda: 0 Note Initiated On: 01/29/2023 2:01 PM Recognized by the [employer] for promoting quality [...] data last revised 21. Testing performed by: [address] [address] Blood 10/17/2022 2:35 PM CDT 10/17/2022 4:34 PM CDT Michael Black DO LAB BLOOD ORDERABLES Fin al Result [facility] [address] [facility] Department [place] [address] * (ABNORMAL) Hemoglobin A1c (10/17/2022 2:35 PM CDT) Hgb A1C 5.9(H) 4.0 - 5.6 % JOSHUA Comment:Testing performed by : [address] [address] Estimated Average Glucose 123 mg/dL JOSHUA Comment: The ADA recommends reporting an estimated Average Glucose (eAG) with all Hemoglobin A1c results using the equation derived from a study of 507 normal and diabetic adults. Minority populations were underrepresented and children were not included. (Diabetes Care 31:6433-1590, 2008). The eAG is not equivalent to a fasting glucose. Testing performed by: [address] [address] Blood 10/17/2022 2:35 PM CDT 10/17/2022 4:34 PM CDT us Michael Black DO LAB BLOOD ORDERABLES Fin al Result JOSHUA BRAVO [address] [facility] Department [place] [address] * Lipid panel (10/17/2022 2:35 PM CDT) [...] last revised on 2018. Testing performed by: [address] [address] Triglycerides 83 <=149 mg/dL JOSHUA Comment: Interpretive [...] last revised on 2018. Testing performed by: [address] [address] HDL 49 >=40 mg/dL JOSHUA Comment: Interpretive [...] last revised on 2018. Testing performed by: [address] [address] LDL, calculated 94 <=129 mg/dL JOSHUA Comment: [...] last revised on 2018. Testing performed by: [address] [address] Non-HDL Cholesterol 111 mg/dL JOSHUA Comment: Interpretive [...] last revised on 2018. Testing performed by: [address] [address] Chol/HDL ratio 3 JOSHUA Comment:Testing performed by : [address] [address] Blood 10/17/2022 2:35 PM CDT 10/17/2022 4:34 PM CDT Narrative JOSHUA - 10/17/2022 5:52 PM CDT Has the patient been fasting for 8 hours or more?->Yes Michael Black DO LAB BLOOD ORDERABLES Fin al Result Performing Organization Address [facility] de Phone Number JOSH[facility] [place] [place] [address] * Hepatitis C antibody (10/31/2021 5:22 PM [...] AL ORDERABLES Final Result Performing Organization Address [facility] de Phone Number JOSHUA [facility] [place] [place] [address] from Last 3 Months or Most Recently Relevant to Health Maintenance Insurance [facility] MEDICARE ADVANTAGE [facility] MEDICARE ADVANTAGE [facility] MEDICARE ADVANTAGE Advance Directives For more information, please contact: [phone] * Full Code (Latest Code Status on File) Date Activated Date Inactivated Comments 11/19/2023 12:55 PM 11/21/2023 5:00 PM * Full Code Date Activated Date Inactivated Comments 11/10/2023 2:25 PM 11/19/2023 12:55 PM * Full Code Date Activated Date Inactivated Comments 11/10/2023 6:39 AM 11/10/2023 2:25 PM Care Teams Home Restoration Service Supervisor Relationship Specialty Start Date End Date Black, Michael Henderson, DO [address] [id number] PCP - General Family Medicine 12/29/19
--- OUTSIDE RECORDS SUMMARY | 2024-10-25 23:19 | XMS_ITS | Clinical Summary ---
Author Organization [facility] Address [address] [place] [address] Care Team Providers Care Hospitality House Supervisor Name Role Phone BlackMichael walker Primary Care Provider [phone] Allergies Active Allergy Reactions Criticality Noted Date [...] CDT Gender Identity Male 07/30/2021 4:25 AM PLANT ANATOMIST Sexual Orientation Straight 07/30/2021 4: 25 AM PLANT ANATOMIST Last Filed Vital Signs Vital Sign Reading Time Taken Comments Blood Pressure 145/87 07/30/2021 11:30 AM PLANT ANATOMIST Pulse 77 07/30/2021 11:02 AM PLANT ANATOMIST Temperature 36.4 C (97.6 F) 07/30/2021 11:02 AM PLANT ANATOMIST Respiratory Rate 18 02/19/2018 4:55 PM CDT Oxygen Saturation 94% 07/30/2021 11:02 AM PLANT ANATOMIST Room Air Inhaled Oxygen Concentration - - [...] patient's age to complete this topic Insurance [facility] Advance Directives * Full Code (Latest Code Status on File) Date Activated Date Inactivated Comments 02/19/2018 3:54 PM 02/19/2018 7:12 PM * Full Code Date Activated Date Inactivated Comments 02/19/2018 1:05 PM 02/19/2018 3:54 PM Care Teams Hospitality House Supervisor Relationship Specialty Start Date End Date Michael Black DO [address] [place] [address] PCP - General FAMILY PRACTICE 02/05/18
--- OUTSIDE RECORDS SUMMARY | 2024-10-25 23:19 | XMS_ITS | Clinical Summary ---
Author Organization [facility] Address [address] [place] [address] Care Team Providers Care Inventory Control Coordinator Name Role Phone Michael Black DO Primary [...] 03/15/2020 Assessment & Plan (05/29/2022 4:38 PM FREIGHT AIR BRAKE FITTER): Impression: Diabetes mellitus with good glucose control. [...] mg. Assessment & Plan (05/29/2022 4:39 PM FREIGHT AIR BRAKE FITTER): Impression: Chronic hypertension, controlled medications. Blood pressure [...] month. Assessment & Plan (05/29/2022 4:38 PM FREIGHT AIR BRAKE FITTER): Impression: Patient complains of pain and tenderness [...] proceed. Assessment & Plan (05/01/2022 11:10 AM FREIGHT AIR BRAKE FITTER): Impression: Painful varicose veins of both lower [...] Description 08/30/2024 7:30 AM CDT Office Visit [facility] Primary Care [address] [place] [phone] Michael Black DO Primary hypertension (Primary Dx); Type 2 diabetes mellitus without complication, without long-term current use of insulin (HCC); DAMIAN (obstructive sleep apnea); Parkinson's disease with dyskinesia and fluctuating manifestations (HCC); Essential hypertension 08/23/2024 Telephone [facility] Primary Care [address] [place] [phone] Michael Black DO Appointment Request 08/11/2024 Telephone [facility] Pulmonology [address] [facility] [address] [place] [phone] Delaney Plummer MA from Last 3 Months [...] on file Legal Sex Male 6:05 AM FREIGHT AIR BRAKE FITTER Gender Identity Male 12/12/2020 10:13 AM CDT [...] history exists Medical Devices Implanted Type Area Compliance Clerk Device Identifier Shelf Expiration Date Model / [...] CREATININE RATIO, URINE Routine 07/21/2023 6:15 PM FREIGHT AIR BRAKE FITTER Type 2 diabetes mellitus without complication, without [...] was last reviewed 2021. Testing performed by: [facility], [address] [place] [address]., [address] Blood 11/28/2023 11:1 2 AM CDT 11/28/2023 1:46 PM CDT Caryl Snyder NP LAB BLOOD ORDERABLES Final Res ult [facility] [id number] [facility] Department [place] [address] * Flexible Sigmoidoscopy (11/19/2023 3:09 PM CDT) Anatomical Region Laterality Modality Other Narrative Procedure Note Modesta Moseley MD - 11/19/2023 3:09 PM CDT [facility] Patient Name: Wayne Zhao Procedure Date: 11/19/2023 3:09 PM Date of : 1950 Admit Type: Inpatient Age: 73 Gender: Male Attending MD: Modesta Moseley M.D. Room: [facility] ENDOSCOPY Note Status: Finalized Procedure: Flexible Sigmoidoscopy [...] Albumin Creatinine Ratio, Urine (07/21/2023 6:15 PM FREIGHT AIR BRAKE FITTER) Albumin Ur 48.0 mg/L JOSHUA Comment: Interpretive Data No reference range established. Current interpretive data was last revised 2018. Testing performed by: [address] [address] Creatinine Ur 86.6 mg/dL JOSHUA Comment: Interpretive Data No reference range established. Current interpretive data was last revised 2018. Testing performed by: [address] [address] Albumin Creatinine Ratio, Ur 55(H) 1 - 29 mg/g JOSHUA Comment:Testing performed by : [address] [address] Urine 07/21/2023 6:15 PM FREIGHT AIR BRAKE FITTER 07/21/2023 7:02 PM FREIGHT AIR BRAKE FITTER us Michael Black DO LAB URINE ORDERABLES Fin al Result JOSHUA [address] [facility] Department [place] [address] * COLONOSCOPY (01/29/2023 2:01 PM CDT) Anatomical Region Laterality Modality Other Narrative Procedure Note Berenice Howe MD - 01/29/2023 2:01 PM CDT [facility] GI ENDOSCOPY Patient Name: Wayne Zhao Procedure Date: 01/29/2023 2:01 PM Date of : 1950 Admit Type: Outpatient Age: 72 Gender: Male Attending MD: Berenice Howe M.D. Room: [facility] ENDOSCOPY ROOM 05 Note Status: [...] On: 01/29/2023 2:01 PM Recognized by the [employer] for promoting quality [...] data last revised 21. Testing performed by: [address] [address] Blood 10/17/2022 2:35 PM CDT 10/17/2022 4:34 PM CDT Michael Henderson Black LAB BLOOD ORDERABLES Fin al Result Performing Organization Address [facility] de Phone Number [place] [address] [facility] Event[employer] [place], [place] [id number] * (ABNORMAL) Hemoglobin A1c (10/17/2022 2:35 PM CDT) Hgb A1C 5.9(H) 4.0 - 5.6 % JOSHUA Comment:Testing performed by : [address] [address] Estimated Average Glucose 123 mg/dL JOSHUA Comment: The ADA recommends reporting an estimated Average Glucose (eAG) with all Hemoglobin A1c results using the equation derived from a study of 507 normal and diabetic adults. Minority populations were underrepresented and children were not included. (Diabetes Care 31:8684-5541, 2008). The eAG is not equivalent to a fasting glucose. Testing performed by: [address] [address] Blood 10/17/2022 2:35 PM CDT 10/17/2022 4:34 PM CDT Michael Black LAB BLOOD ORDERABLES Fin al Result Performing Organization Address [facility] de Phone Number [facility] [address] [facility] [place] [address] * Lipid panel (10/17/2022 2:35 PM CDT) [...] last revised on 2018. Testing performed by: [address] [address] Triglycerides 83 <=149 mg/dL JOSHUA Comment: Interpretive [...] last revised on 2018. Testing performed by: [address] [address] HDL 49 >=40 mg/dL JOSHUA Comment: Interpretive [...] last revised on 2018. Testing performed by: [address] [address] LDL, calculated 94 <=129 mg/dL JOSHUA Comment: [...] last revised on 2018. Testing performed by: [address] [address] Non-HDL Cholesterol 111 mg/dL JOSHUA Comment: Interpretive [...] last revised on 2018. Testing performed by: [address] [address] Chol/HDL ratio 3 JOSHUA Comment:Testing performed by : [address] [address] Blood 10/17/2022 2:35 PM CDT 10/17/2022 4:34 PM CDT Narrative JOSHUA - 10/17/2022 5:52 PM CDT Has the patient been fasting for 8 hours or more?->Yes us Michael Black DO LAB BLOOD ORDERABLES Fin al Result J[facility]HUA BRAVO [address] [facility] Department [place] [address] * Hepatitis C antibody (10/31/2021 [...] AL ORDERABLES Final Result J[facility]HUA BRAVO [address] [facility] Department [place] [address] from Last 3 Months or Most Recently Relevant to Health Maintenance Insurance [facility] MEDICARE ADVANTAGE [facility] MEDICARE ADVANTAGE [facility] MEDICARE ADVANTAGE Advance Directives For more information, please contact: [phone] * Full Code (Latest Code Status on File) Date Activated Date Inactivated Comments 11/19/2023 12:55 PM 11/21/2023 5:00 PM * Full Code Date Activated Date Inactivated Comments 11/10/2023 2:25 PM 11/19/2023 12:55 PM * Full Code Date Activated Date Inactivated Comments 11/10/2023 6:39 AM 11/10/2023 2:25 PM Care Teams Inventory Control Coordinator Relationship Specialty Start Date End Date Michael Black DO [address] [address] PCP - General Family Medicine 12/29/19
--- OUTSIDE RECORDS SUMMARY | 2024-10-25 23:19 | XMS_ITS | Encounter Summary ---
Author Organization [facility] Facility Care Team Providers Care Application Designer Name Role Phone Michael Black DO Primary Care Provider + Janeth Carrillo [facility] Unavailable Sunitha Jurado LPN Unavailable [phone] Encounter Details Date Type Department Care Team (Latest Contact Info) Description 2018 Orders Only [facility]INCON[facility] ProviderPlacido MD [address] [place] [address] Social History Tobacco Use Types Packs/Day Years Used Date Smoking Tobacco: Former Sex and Gender Information Value Date Recorded Sex Assigned at Not on file Legal Sex Male 6:05 AM STOCK UNLOADER Gender Identity Male 12/12/2020 10:13 AM CDT Sexual Orientation Straight 12/12/2020 10 :13 AM CDT documented as of this encounter Plan of Treatment Not on file documented as of this encounter Procedures Procedure Name Priority Date/Time Associated Diagnosis Comments PROCEDURE - RESULT 07/07/2018 12 :00 AM STOCK UNLOADER documented in this encounter Results * PROCEDURE - RESULT (07/07/2018 12:00 AM STOCK UNLOADER) Narrative 07/07/2018 12:00 AM STOCK UNLOADER Ordered by an unspecified provider. us Historical Provider MD Final Res ult documented in this encounter Visit Diagnoses Not on filedocumented in this encounter Care Teams Application Designer Relationship Specialty Start Date End Date Michael Black DO [address] [address] PCP - General Family Medicine 12/29/19 Janeth Carrillo RPh [address] [place] [address] [address] [place] [address] Pharmacist Pharmacy 06/05/23 12/29/23 Sunitha Jurado LPN [address] [place] [address] [address] [place] [address] Special [employer] Officer 11/24/23 11/24/23 documented as of this encounter
[2024-10-25 23:33] LABS: Lactic Acid Reflex 0.8 mmol/L (0.7-2.0)
[2024-10-25 23:34] LABS: Alanine Aminotransferase 14 U/L (6-50); Albumin Level 4.4 g/dL (3.5-5.1); Alkaline Phosphatase 87 U/L (38-126); Anion Gap 12 mmol/L (4-12); Aspartate Amino Transferase 25 U/L (17-59); Bilirubin,Total 1.3 mg/dL (0.2-1.3); Blood Urea Nitrogen 15 mg/dL (9-20); Calcium 9.1 mg/dL (8.4-10.2); Carbon Dioxide 27 mmol/L (22-30); Chloride 98 mmol/L (98-107); Estimated CRCL calculation 92 ml/min; Estimated Glomerular Filt Rate > 60; Glucose 113 mg/dL (65-110); Magnesium 1.8 mg/dL (1.6-2.3); Potassium 3.7 mmol/L (3.4-5.0); Sodium 137 mmol/L (137-145)
[2024-10-26 00:30] VITALS: BP 126/65; PULSE 88; RESP 16; O2SAT 100
[2024-10-26 02:00] VITALS: BP 115/70; PULSE 88; RESP 18; O2SAT 99
--- NOTE | 2024-10-26 02:17 | ED_ITS ---
HPI - GI Bleed General Chief complaint: GI Bleed Stated complaint: rectal bleeding Time Seen by Provider: 10/25/24 23:12 History of Present Illness HPI Narrative: Patient presenting here with rectal bleeding, he does have history of hemorrhoids, has soaked through multiple underwear today with passing clots. No abdominal pain. Related Data Home Medications ?Medication ?Instructions ?Recorded ?Confirmed ?Last Taken ?Type cardioplegic no.32 (maint 8:1) 24 ml perfusion 01/04/20 Unknown History mEq/300 mL (potassium) perfusion (Cardioplegia Maint 8:1 non-enrich) cholecalciferol (vitamin D3) 25 25 mcg PO DAILY 01/04/20 Unknown History mcg (1,000 unit) capsule ferrous sulfate 325 mg (65 mg 325 mg PO DAILY 01/04/20 Unknown History iron) tablet (Feosol) hydralazine 10 mg tablet 10 mg PO BID 01/04/20 Unknown History montelukast 4 mg chewable tablet See Rx Instructions PO .COMPLEX 01/04/20 Unknown History [id number]-vja-mlmoy acid 0.4 1 tablet PO DAILY 01/04/20 Unknown History mg-lycopene 300 mcg-lutein 250 mcg tablet (Centrum Silver) multivitamin with iron (Daily 1 tablet PO DAILY 01/04/20 Unknown History Vitamin with Iron tablet) omeprazole 20 mg capsule,delayed 20 mg PO DAILY 01/04/20 Unknown History release propranolol 40 1 tablet PO DAILY 01/04/20 Unknown History mg-hydrochlorothiazide 25 mg tablet sertraline 100 mg tablet 100 mg PO DAILY 01/04/20 Unknown History triamcinolone acetonide 0.1 % 1 applic dental BID 01/04/20 Unknown History dental paste triamcinolone acetonide 55 mcg 1 spray intranasal DAILY 01/04/20 Unknown History nasal spray aerosol (Nasacort) [id number] pepper tablet PO 01/04/20 Unknown History 100 mg-200 unit-50 mg-800 mcg tablet vitamin B complex (B 1 tablet PO DAILY 01/04/20 Unknown History Complex-Vitamin B12 tablet) wheat dextrin 3 gram/3.5 gram oral 1 packet PO DAILY 01/04/20 Unknown History powder packet (Benefiber Clear Sugar Free(dextrin)) wheat dextrin 3 gram/4 gram oral 1.5 gm PO BID 07/14/20 Unknown History powder (Benefiber Sugar Free (dextrin)) Allergies Allergy/AdvReac Type Severity Reaction Status Date / Time lisinopril Allergy Severe Swelling Verified 08/21/24 22:47 Penicillins Allergy Mild swelling Verified 08/21/24 22:47 eyelid, lips and hives Review of Systems 2 Review of Systems: All systems reviewed & are unremarkable except as noted in HPI and below Exam 2 Narrative: EXAMINATION OF ORGAN SYSTEMS/BODY AREAS: Constitutional: Vital signs per nursing GENERAL:[No acute distress, non-toxic appearing.] HEAD: Normal with no signs of head trauma. EYES: EOMI, conjunctiva normal ENT: Hearing grossly intact LUNGS: Nonlabored breathing. HEART: [Regular rate and rhythm] ABD: [Soft], [nontender to palpation] RECTAL: Clots/some active oozing on external hemorrhoids EXT: Normal range of motion SKIN: Hemorrhoids NEURO: [Alert and oriented x 3. No gross focal sensory or strength deficits.] PSYCH: Normal affect Course Vital Signs Vital signs: Vital Signs Temperature 98 F 10/25/24 22:41 Pulse Rate 106 H 10/25/24 22:41 Respiratory Rate 18 10/25/24 22:41 Blood Pressure 129/80 10/25/24 22:41 Pulse Oximetry 97 10/25/24 22:41 Temperature 98 F 10/25/24 22:41 Pulse Rate 88 10/26/24 02:00 Respiratory Rate 18 10/26/24 02:00 Blood Pressure 115/70 10/26/24 02:00 Pulse Oximetry 99 10/26/24 02:00 MDM - GI Bleed MDM Narrative Medical decision making narrative: Patient presents with rectal bleeding, on exam he does have multiple external hemorrhoids, 1 of them seems to be the source with oozing, I did attempt to gently packed this with some gauze, will obtain labs and imaging to out other source of bleeding. Hemoglobin is stable, CT does not show any obvious other source of bleeding. Discussed with general surgeon who is agreeable to patient being admitted and consult on the patient with plan for likely OR tomorrow, with GI on consult, this is placed and I have talked to the hospitalist. Patient has been updated on the plan. Lab Data 10/25/24 23:10 10/25/24 23:10 Labs: Lab Results 10/25/24 Range/Units 23:10 WBC 5.7 (4.5-10.0) K/mm3 RBC 4.97 (4.6-6.20) M/mm3 Hgb 13.7 L D (14.0-18.0) g/dL Hct 42.7 (42.0-52.0) % MCV 85.9 (80-100) fl MCH 27.6 (26-34) pg MCHC 32.1 (32-36) g/dl RDW 13.4 (11.5-14.5) % Plt Count 239 (150-375) k/mm3 MPV 10.2 (7.4-10.4) fl Immature Gran % (Auto) 0.3 (0-0.5) % Neut % (Auto) 69.8 (45.5-73.1) % Lymph % (Auto) 18.9 (18.3-44.2) % [place] % (Auto) 9.1 H (2.6-8.5) % Eos % (Auto) 1.7 (0-4.4) % Baso % (Auto) 0.2 (0.2-1.2) % Lymph # (Auto) 1.08 (0.9-3.2) K/mm3 [place] # (Auto) 0.5 (0.1-0.6) K/mm3 Eos # (Auto) 0.1 (0-0.3) K/mm3 Baso # (Auto) 0.0 (0.0-0.1) K/mm3 Abs Immat Gran (auto) 0.02 (0.00-0.031) K/mm3 Absolute Neuts (auto) 4.0 (1.3-6.7) K/mm3 Absolute Nucleated RBC 0.000 (0.0-0.012) K/mm3 Nucleated RBC % 0.0 (0.0-0.2) % Sodium 137 (137-145) mmol/L Potassium 3.7 (3.4-5.0) mmol/L Chloride 98 (98-107) mmol/L Carbon Dioxide 27 (22-30) mmol/L Anion Gap 12 (4-12) mmol/L BUN 15 D (9-20) mg/dL Creatinine 0.70 (0.7-1.3) mg/dL Estim Creat Clear Calc 92 ml/min Estimated GFR > 60 (59 - ) Glucose 113 H (65-110) mg/dL Lactic Acid 0.8 (0.7-2.0) mmol/L Calcium 9.1 (8.4-10.2) mg/dL Magnesium 1.8 (1.6-2.3) mg/dL Total Bilirubin 1.3 (0.2-1.3) mg/dL AST 25 (17-59) U/L ALT 14 (6-50) U/L Alkaline Phosphatase 87 (38-126) U/L Total Protein 8.0 (6.3-8.2) g/dL Albumin 4.4 (3.5-5.1) g/dL Discharge Plan Discharge Clinical Impression: External hemorrhoids, Acute lower gastrointestinal bleeding Patient Disposition: Still a Patient Condition: Serious
--- NOTE | 2024-10-26 03:17 | ADMGEN ---
This patient, Wayne Zhao, was admitted to [facility] Surg Room 324-02. Patient/family oriented to hospital policies and general routines including ID bracelet, bed and alarms, visiting hours, pain management, procedures, bathroom and other care routines, personal items, smoking policy, room service/diet, and visiting hours. Information on how to activate the Rapid Response Team has been discussed. Patient/Family are encouraged to report perceived risks to care and to ask questions if they do not understand what they are told or what they should do.
--- NOTE | 2024-10-26 03:28 | P.HP_ITS ---
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 Patient reports he has painful hemorrhoids that have been known to bleed from time to time but states this is more bleeding than he has ever had. It is painful and bright red in color with occasional clots. Patient does not take any blood thinners or anti-platelet aggregates. Patient is a nonsmoker, does not partake of drugs or alcohol except alcohol socially and in moderation. Patient states he also has some occasional abdominal pain but notes he has been constipated as of recently. He denies any nausea, vomiting or diarrhea. A workup is performed in the emergency room with labs and imaging. CBC is unremarkable with a noted H&H of 13.7/42.7, unremarkable metabolic panel. CT abdomen and pelvis is performed and is pending at this time. ER physician spoke with general surgeon Dr. Min who advised he will take patient to the OR this morning. In addition Dr. Gamez has been placed on consult at the request of Dr. Min. Patient is being kept NPO at this time pending further evaluation. Patient's home meds have been confirmed however I have placed him on hold pending further evaluation by General surgery. Review of Systems Review of Systems: All systems reviewed & are unremarkable except as noted in HPI and below PMFSH Past Medical History Medical History Depression Borderline diabetes Social History Social History Smoking status: Former smoker Meds Home Medications and Allergies Home Medications ?Medication ?Instructions ?Recorded ?Confirmed ?Type cholecalciferol (vitamin D3) 25 25 mcg PO DAILY 01/04/20 10/26/24 History mcg (1,000 unit) capsule ferrous sulfate 325 mg (65 mg 325 mg PO DAILY 01/04/20 10/26/24 History iron) tablet (Feosol) montelukast 4 mg chewable tablet See Rx Instructions PO .COMPLEX 01/04/20 10/26/24 History sertraline 100 mg tablet 100 mg PO DAILY 01/04/20 10/26/24 History vitamin B complex (B 1 tablet PO DAILY 01/04/20 10/26/24 History Complex-Vitamin B12 tablet) albuterol sulfate 90 mcg/actuation 1 puff inhalation BID PRN 10/26/24 10/26/24 History aerosol inhaler shortness of breath or wheezing hydralazine 25 mg tablet 25 mg PO BID 10/26/24 10/26/24 History metformin 500 mg tablet,extended 500 mg PO DAILY 10/26/24 10/26/24 History release 24 hr (Glucophage XR) omeprazole 20 mg capsule,delayed 20 mg PO DAILY 10/26/24 10/26/24 History release propranolol 10 mg tablet 10 mg PO Q8H 10/26/24 10/26/24 History rosuvastatin 5 mg tablet 5 mg PO DAILY 10/26/24 10/26/24 History triamterene 37.5 1 tablet PO DAILY 10/26/24 10/26/24 History mg-hydrochlorothiazide 25 mg tablet Allergies Allergy/AdvReac Type Severity Reaction Status Date / Time lisinopril Allergy Severe Swelling Verified 08/21/24 22:47 Penicillins Allergy Mild swelling Verified 08/21/24 22:47 eyelid, lips and hives Vital Signs Vital Signs - 24 hr 10/25/24 22:41 10/26/24 00:30 10/26/24 02:00 Temperature 98 F Pulse Rate 106 H 88 88 Respiratory Rate 18 16 18 Blood Pressure 129/80 126/65 115/70 Pulse Oximetry 97 100 99 Exam Const: General: comfortable and no acute distress Other: Pleasant, elderly male patient lying supine on bed at this time in no acute distress. HENMT: Face/Nose/Sinus: Normal nares present and no epistaxis Mouth: Yes moist mucous membranes Eyes: General: appearance normal, both eyes and all related structures Sclera: sclerae normal Pupils: Equal, round and reactive pupils present EOM: EOMs intact bilaterally Neck: Neck: supple and no JVD Resp: Effort & Inspection: normal respiratory effort Auscultation: clear to auscultation bilaterally Cardio: Rate: regular rate Rhythm: regular rhythm Heart sounds: no gallops, no murmurs and no rubs GI: Inspection: non-distended GI Palp: Yes Soft to palpation and Yes Tenderness to palpation present (GI) (Generalized) Auscultation: normal bowel sounds Skin: General skin exam: normal color and no rashes or lesions noted Lesions: no lesions noted Wounds: no wounds Neuro: General: gait normal Speech: normal speech Motor exam (neuro): 5/5 motor strength present throughout and Normal motor muscle tone present throughout Sensory Exam: normal sensation Extrem: Other: Freely and equally moves all extremities well without deficit Psych: Mental Status: mental status grossly normal Affect: normal affect H&P: Results Labs Labs: Short CBC 10/25/24 Range/Units 23:10 WBC 5.7 (4.5-10.0) K/mm3 Hgb 13.7 L D (14.0-18.0) g/dL Hct 42.7 (42.0-52.0) % Plt Count 239 (150-375) k/mm3 BMP 10/25/24 23:10 Sodium 137 Potassium 3.7 Chloride 98 Carbon Dioxide 27 BUN 15 D Creatinine 0.70 Glucose 113 H Calcium 9.1 Liver Function 10/25/24 Range/Units 23:10 Total Bilirubin 1.3 (0.2-1.3) mg/dL AST 25 (17-59) U/L ALT 14 (6-50) U/L Alkaline Phosphatase 87 (38-126) U/L Albumin 4.4 (3.5-5.1) g/dL Assessment and Plan Assessment and plan (1) External hemorrhoids: Code(s): K64.4 - Residual hemorrhoidal skin tags Status: Acute Assessment and Plan: * Acute on chronic with acute onset of bleeding this evening after constipation and having bowel movements * Hemoglobin and hematocrit normal at 13.7/42.7 respectively * General surgery and GI have been consulted. Patient is being kept NPO until general surgery evaluate. Plan for potential or this morning. * P.r.n. pain meds of morphine IV push. * As patient is NPO he is started on IV fluids for hydration. (2) Acute lower gastrointestinal bleeding: Code(s): K92.2 - Gastrointestinal hemorrhage, unspecified Status: Acute Assessment and Plan: * See 1. (3) High blood pressure: Code(s): I10 - Essential (primary) hypertension Status: Chronic Assessment and Plan: * Chronic in nature. * Patient's home meds are confirmed, however we are holding patient's medications as he is NPO. Will order IV hydralazine p.r.n. with parameters for systolic blood pressure greater than 180 and diastolic greater than 90. (4) Paget's bone disease: Code(s): M88.9 - Osteitis deformans of unspecified bone Status: Chronic Assessment and Plan: * Chronic (5) Depression: Code(s): F32.A - Depression, unspecified Status: Chronic Assessment and Plan: * Chronic (6) Borderline diabetes: Code(s): R73.03 - Prediabetes Status: Chronic Assessment and Plan: * Chronic * As patient is NPO we will check glucose every 6 hours. Quality VTE Prophylaxis VTE prophylaxis: mechanical ordered Hospitalist MIPS Advance Care Plan I have confirmed that the patient's Advanced Care Plan is present, code status is documented, or surrogate decision maker is listed in patient medical record.: Yes Medication Reconciliation I have utilized all available resources to obtain, update and review the patients current medications (includes all prescriptions, OTC, herbals, cannabis, and nutritional supplements).: Yes
[2024-10-26 03:36] VITALS: BP 116/62; PULSE 88; RESP 16; TEMP 36.8; O2SAT 98
[2024-10-26 03:40] VITALS: BMI 30.7
[2024-10-26] MEDS: SODIUM CHLORIDE 0.9% IV 1,000 ML 100 ML IV CONT ×2 (04:24→14:34)
[2024-10-26 05:24] VITALS: BP 129/71; PULSE 84; RESP 20; TEMP 36.3; O2SAT 98
[2024-10-26 06:38] LABS: Glucose Point of Care 112 mg/dl (65-105)
--- NOTE | 2024-10-26 10:39 | P.CONGI_ITS ---
Assessment and Plan Assessment and plan (1) External hemorrhoids: Code(s): K64.4 - Residual hemorrhoidal skin tags Status: Acute (2) Acute lower gastrointestinal bleeding: Code(s): K92.2 - Gastrointestinal hemorrhage, unspecified Status: Acute (3) Colon polyps: Qualifiers: Colon polyp type: unspecified Colon location: unspecified part of colon Qualified Code(s): K63.5 - Polyp of colon Code(s): K63.5 - Polyp of colon Status: Acute Plan 1. Rectal bleeding/hemorrhoids/constipation/personal Hx of colon polyps: Per patient last colonoscopy around 1 year ago at [facility] and per patient he had polyps removed and was advised to have a repeat colonoscopy in 5 year. Endoscopy records not available during visit. Patient admits to a long standing Hx of hemorrhoids and occasional trace rectal bleeding but yesterday he started having a large amount of rectal bleeding with blood clots and it soaked through his clothing. Patient was noted to have a bleeding external hemorrhoid in ER and a packing is still in place. No rectal bleeding or BM since admission. Patient states that he is having daily bowel movements that are formed non urgent. CT showed postop changes of the sigmoid colon with suspected constipation. DDX: Hemorrhoid versus polyp versus AVM versus neoplasm versus stercoral colitis * flexible sigmoidoscopy ordered * clears today * prep start this evening- Miralax only * Following endoscopic evaluation, MiraLax daily to avoid constipation or straining bowel movements * surgery was also consulted but hadn't seen the patient by the time of patients visit Thank you very much for allowing me to share in the care of this very nice patient. This report may have been done utilizing a voice recognition system. Attempts have been made to correct errors. However, there may be uncorrected grammatical, spelling, and recognition errors present. GI Consult Note Consult date/time: 10/26/24 10:39 Reason for consult: rectal bleeding and hemorrhoids HPI: Wayne Zhao is a 74 year old male with past medical-surgical history of dystonic movement disorder, GERD, depression, Paget's disease, and prediabetes. He presented to the emergency room today with complaints of rectal bleeding. GI has been consulted for rectal bleeding and hemorrhoids. Patient states that since yesterday around 2:00 p.m. he has been having bright red blood per rectum. He states that he has a history of trace rectal bleeding secondary to known hemorrhoids in the past but he states the bleeding that started yesterday was a large amount so severe that it was going through his underwear and clothing and often contain clots. He does admit to straining bowel movement prior to bleeding. He is normally having regular daily bowel movements that are formed and non urgent. Rectal exam upon presentation revealed multiple external hemorrhoids 1 of them which seemed to be oozing and patient had a packing applied in the emergency room. He denies any BM since admission. He denies any abdominal pain, nausea, vomiting, bloating, Maria Eugenia aphasia, dysphagia, reflux, regurgitation, early satiety, weight loss, appetite loss, diarrhea, constipation or melena. He denies any NSAID, aspirin, or anticoagulant use. He is a nondrinker nonsmoker and denies marijuana use. Family history negative for CRC or IBD. ENDOSCOPY HISTORY: EGD: Per patient he has never had an EGD COLONOSCOPY: Per patient last colonoscopy performed around 1 year ago at [facility] at which time he had colon polyps removed. Endoscopy reports not available during today's visit. Patient states that he was advised to have a repeat colonoscopy in 5 years. LABS AND STOOL STUDIES: Labs 10/25/2024: WBC 6, HGB 14, HCT 43, MCV 86, platelets 239 Sodium 137, potassium 3.7, BUN 15, creatinine 0.70, GFR > 60. lactic acid 0.8, calcium 9.1, magnesium 1.8 Total bilirubin 1.3, AST 25, ALT 14, albumin 4.4 IMAGING: CT abd/pelvis w/contrast 10/26/2024: Findings: Scans through the lung bases are unremarkable. Probable small hepatic cyst. The spleen, pancreas, gallbladder, adrenals and kidneys are within normal limits. There are atherosclerotic calcifications of the aorta. No lymphadenopathy. No bowel obstruction or bowel wall thickening. There is postoperative change of the sigmoid colon with colonic anastomosis present. Stool suggests constipation.. Images through the pelvis were performed. Urinary bladder unremarkable. No pelvic mass. No ascites. Impression: No distinct etiology for GI bleed seen. Postoperative changes of the sigmoid colon with suspected constipation. Review of Systems 2 Constitutional: Constitutional: Reports as per HPI ENT: Reports as per HPI Cardiovascular: Cardiovascular: Reports as per HPI, Denies chest pain and Denies dyspnea Respiratory: Respiratory: Denies cough and Denies dyspnea Gastrointestinal: Gastrointestinal: Reports as per HPI Musculoskeletal: Musculoskeletal: Reports as per HPI Integumentary/Breasts: Skin/Breast: Reports as per HPI Psychiatric: Psychiatric: Reports as per HPI Endocrine: Endocrine: Reports no additional endocrine complaints Hematologic/Lymphatic: Hematologic/Lymphatic: Reports no additional hematologic/lymphatic complaints [facility] Past Medical History Medical History Depression Borderline diabetes Social History Social History Smoking status: Former smoker Do You Feel Safe in your Home?: Yes Lack of Transportation: YES Lack of Food: Never True Current Housing: I Have Housing Concerned About Future Housing: YES Difficulty Paying Gas/Electric Bills: YES Difficulty Paying for Meds: No Currently Unemployed: No Education: Master's Degree or Higher Difficulty w/ Childcare or Family Care: No Spiritual care concerns: No Meds Home Medications and Allergies Home Medications ?Medication ?Instructions ?Recorded ?Confirmed ?Type cholecalciferol (vitamin D3) 25 25 mcg PO DAILY 01/04/20 10/26/24 History mcg (1,000 unit) capsule ferrous sulfate 325 mg (65 mg 325 mg PO DAILY 01/04/20 10/26/24 History iron) tablet (Feosol) montelukast 4 mg chewable tablet See Rx Instructions PO .COMPLEX 01/04/20 10/26/24 History sertraline 100 mg tablet 100 mg PO DAILY 01/04/20 10/26/24 History vitamin B complex (B 1 tablet PO DAILY 01/04/20 10/26/24 History Complex-Vitamin B12 tablet) albuterol sulfate 90 mcg/actuation 1 puff inhalation BID PRN 10/26/24 10/26/24 History aerosol inhaler shortness of breath or wheezing hydralazine 25 mg tablet 25 mg PO BID 10/26/24 10/26/24 History metformin 500 mg tablet,extended 500 mg PO DAILY 10/26/24 10/26/24 History release 24 hr (Glucophage XR) omeprazole 20 mg capsule,delayed 20 mg PO DAILY 10/26/24 10/26/24 History release propranolol 10 mg tablet 10 mg PO Q8H 10/26/24 10/26/24 History rosuvastatin 5 mg tablet 5 mg PO DAILY 10/26/24 10/26/24 History triamterene 37.5 1 tablet PO DAILY 10/26/24 10/26/24 History mg-hydrochlorothiazide 25 mg tablet Allergies Allergy/AdvReac Type Severity Reaction Status Date / Time lisinopril Allergy Severe Swelling Verified 08/21/24 22:47 Penicillins Allergy Mild swelling Verified 08/21/24 22:47 eyelid, lips and hives Vital Signs Vital Signs - 24 hr 10/25/24 22:41 10/26/24 00:30 10/26/24 02:00 Temperature 98 F Pulse Rate 106 H 88 88 Respiratory Rate 18 16 18 Blood Pressure 129/80 126/65 115/70 Pulse Oximetry 97 100 99 Oxygen Delivery 10/26/24 03:36 10/26/24 03:41 10/26/24 05:24 Temperature 98.2 F 97.4 F L Pulse Rate 88 84 Respiratory Rate 16 20 Blood Pressure 116/62 129/71 Pulse Oximetry 98 98 Oxygen Delivery Room Air 10/26/24 08:00 Temperature Pulse Rate Respiratory Rate Blood Pressure Pulse Oximetry Oxygen Delivery Room Air Exam 2 Const: General: cooperative, healthy appearing, comfortable, no acute distress and well developed Orientation/consciousness: oriented to person, oriented to place, oriented to time and patient oriented x3 HENMT: Head: normal to inspection, normocephalic and atraumatic Mouth: Yes Normal oral and palatal mucosa present and Yes moist mucous membranes Eyes: General: appearance normal, both eyes and all related structures C onjunctivae: conjunctivae normal Sclera: sclerae normal Pupils: Equal, round and reactive pupils present Neck: Neck: normal visual inspection Chest: Chest palpation & inspection: normal inspection of the chest Resp: Effort & Inspection: normal respiratory effort and able to speak in complete sentences Auscultation: clear to auscultation bilaterally Cardio: Jugular venous distension: no JVD Rate: regular rate Rhythm: r egular rhythm Heart sounds: S1 normal heart sound present and S2 normal heart sound present GI: Inspection: normal to inspection GI Palp: Yes Soft to palpation and Yes No hepatosplenomegaly present Auscultation: normal bowel sounds Rectal Exam: deferred Skin: General skin exam: normal color and no rashes or lesions noted Neuro: General: oriented to person, oriented to place, oriented to time and patient oriented x3 Cranial nerves: Yes Equal, round and reactive pupils present Speech: normal speech Extrem: General: normal to inspection and no clubbing, cyanosis or edema Psych: Appearance: grossly normal and well kempt Affect: normal affect Results Labs 10/26/24 11:02 10/25/24 23:10 Labs: Short CBC 10/25/24 Range/Units 23:10 WBC 5.7 (4.5-10.0) K/mm3 Hgb 13.7 L D (14.0-18.0) g/dL Hct 42.7 (42.0-52.0) % Plt Count 239 (150-375) k/mm3 BMP 10/25/24 23:10 Sodium 137 Potassium 3.7 Chloride 98 Carbon Dioxide 27 BUN 15 D Creatinine 0.70 Glucose 113 H Calcium 9.1 Liver Function 10/25/24 Range/Units 23:10 Total Bilirubin 1.3 (0.2-1.3) mg/dL AST 25 (17-59) U/L ALT 14 (6-50) U/L Alkaline Phosphatase 87 (38-126) U/L Albumin 4.4 (3.5-5.1) g/dL
[2024-10-26 11:10] LABS: Hematocrit 38.9 % (42.0-52.0); Hemoglobin 12.2 g/dL (14.0-18.0); Mean Corpuscular HGB Conc 31.4 g/dl (32-36); Mean Corpuscular Hemoglobin 27.2 pg (26-34); Mean Corpuscular Volume 86.8 fl (80-100); Mean Platelet Volume 9.3 fl (7.4-10.4); Platelet Count Result 170 k/mm3 (150-375); Red Blood Count 4.48 M/mm3 (4.6-6.20); Red Cell Distribution Width 13.5 % (11.5-14.5); White Blood Count 4.7 K/mm3 (4.5-10.0)
[2024-10-26 11:28] LABS: Prothrombin Time 13.5 Seconds (11.1-14.7)
[2024-10-26 11:29] LABS: Partial Thromboplastin Time 33.4 Seconds (22.3-36.8)
[2024-10-26 12:23] LABS: Glucose Point of Care 98 mg/dl (65-105)
--- NOTE | 2024-10-26 12:27 | P.CONGS_ITS ---
Assessment and Plan Assessment and plan (1) Bleeding hemorrhoids: Code(s): K64.9 - Unspecified hemorrhoids Status: Acute Assessment and Plan: Patient presented with rectal bleeding and what appeared to be bleeding hemorrhoids in the ER. No reported bleeding since admission and no active bleeding on my exam. Hgb stable. GI also consulted and planning for flexible sigmoidoscopy. He may need surgical intervention depending on endoscopic evaluation and if bleeding continues to be an issue, but will continue to monitor for now as there is no urgent need for intervention. Recommend sitz baths and we can start Metamucil after endoscopic evaluation. He will need to avoid straining and constipation in the future, which was discussed. He already attempts to eat a high fiber diet and avoid fatty foods or things that would promote constipation. Could also consider starting suppositories for his symptoms. Will discuss with Dr. Min and follow along. (2) Acute lower gastrointestinal bleeding: Code(s): K92.2 - Gastrointestinal hemorrhage, unspecified Status: Acute (3) Anemia: Code(s): D64.9 - Anemia, unspecified Status: Chronic (4) Borderline diabetes: Code(s): R73.03 - Prediabetes Status: Chronic Plan Thank you for allowing us to see the patient in consultation and we will continue to follow along with you. History of Present Illness Consult details Consult date: 10/26/24 Reason for consult: other (Bleeding hemorrhoids) Requesting physician: Filomena Irvin MD Narrative: This is a 74-year-old man with PMH diabetes, hyperlipidemia, and hemorrhoids, who we have been asked to see in surgical consultation for bleeding hemorrhoids. He presented to the ED yesterday with complaints of rectal bleeding starting around 2:30 p.m.. He reports having intermittent bleeding hemorrhoids for over 30 years. He denies having a hemorrhoidectomy in the past, but has seen a surgeon and believes he has had banding years ago. He typically has issues with bleeding about every other month for the past year and a half. Yesterday he noticed some bleeding after a bowel movements. He tried laying down and took a nap. When he woke up, his bed was soaked with bright red blood. He had passed 2 large blood clots. He denies any dizziness, lightheadedness, abdominal pain, or other complaints. The bleeding was more significant than what he typically deals with, therefore he came into the ED for evaluation. Labs showed hemoglobin at 13.7. His only labs for comparison were from about a year ago when his hemoglobin was 7.5. He has a history of anemia and is on iron supplements. 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 He was also admitted at [facility] 1 year ago with a sigmoid volvulus and subsequently had a sigmoidectomy. In the ED, the provider felt as though she could see bleeding coming from hemorrhoids and he had gauze packed at the anal verge. He denies any bleeding or bowel movements since admission. He denies any rectal pain or other symptoms related to the hemorrhoids at this time. Review of Systems 2 Review of Systems: All systems reviewed & are unremarkable except as noted in HPI and below PMFSH Past Medical History Medical History Depression Borderline diabetes Surgical History Surgical History History of colonoscopy History of partial colectomy History sigmoidectomy for sigmoid volvulus in 2023 Social History Social History Smoking status: Former smoker Do You Feel Safe in your Home?: Yes Lack of Transportation: YES Lack of Food: Never True Current Housing: I Have Housing Concerned About Future Housing: YES Difficulty Paying Gas/Electric Bills: YES Difficulty Paying for Meds: No Currently Unemployed: No Education: Master's Degree or Higher Difficulty w/ Childcare or Family Care: No Spiritual care concerns: No Meds Home Medications and Allergies Home Medications ?Medication ?Instructions ?Recorded ?Confirmed ?Type cholecalciferol (vitamin D3) 25 25 mcg PO DAILY 01/04/20 10/26/24 History mcg (1,000 unit) capsule ferrous sulfate 325 mg (65 mg 325 mg PO DAILY 01/04/20 10/26/24 History iron) tablet (Feosol) montelukast 4 mg chewable tablet See Rx Instructions PO .COMPLEX 01/04/20 10/26/24 History sertraline 100 mg tablet 100 mg PO DAILY 01/04/20 10/26/24 History vitamin B complex (B 1 tablet PO DAILY 01/04/20 10/26/24 History Complex-Vitamin B12 tablet) albuterol sulfate 90 mcg/actuation 1 puff inhalation BID PRN 10/26/24 10/26/24 History aerosol inhaler shortness of breath or wheezing hydralazine 25 mg tablet 25 mg PO BID 10/26/24 10/26/24 History metformin 500 mg tablet,extended 500 mg PO DAILY 10/26/24 10/26/24 History release 24 hr (Glucophage XR) omeprazole 20 mg capsule,delayed 20 mg PO DAILY 10/26/24 10/26/24 History release propranolol 10 mg tablet 10 mg PO Q8H 10/26/24 10/26/24 History rosuvastatin 5 mg tablet 5 mg PO DAILY 10/26/24 10/26/24 History triamterene 37.5 1 tablet PO DAILY 10/26/24 10/26/24 History mg-hydrochlorothiazide 25 mg tablet Allergies Allergy/AdvReac Type Severity Reaction Status Date / Time lisinopril Allergy Severe Swelling Verified 08/21/24 22:47 Penicillins Allergy Mild swelling Verified 08/21/24 22:47 eyelid, lips and hives Vital Signs Vital Signs - 24 hr 10/25/24 22:41 10/26/24 00:30 10/26/24 02:00 Temperature 98 F Pulse Rate 106 H 88 88 Respiratory Rate 18 16 18 Blood Pressure 129/80 126/65 115/70 Pulse Oximetry 97 100 99 Oxygen Delivery 10/26/24 03:36 10/26/24 03:41 10/26/24 05:24 Temperature 98.2 F 97.4 F L Pulse Rate 88 84 Respiratory Rate 16 20 Blood Pressure 116/62 129/71 Pulse Oximetry 98 98 Oxygen Delivery Room Air 10/26/24 08:00 Temperature Pulse Rate Respiratory Rate Blood Pressure Pulse Oximetry Oxygen Delivery Room Air Exam 2 Const: General: comfortable and no acute distress Nutritional Appearance: a verage body habitus Orientation/consciousness: patient oriented x3 HENMT: Head: normocephalic and atraumatic Ears: hearing grossly normal bilaterally Mouth: Yes moist mucous membranes Eyes: General: appearance normal, both eyes and all related structures P upils: Equal, round and reactive pupils present Neck: Neck: normal visual inspection and full ROM Resp: Effort & Inspection: no respiratory distress Auscultation: clear to auscultation bilaterally Cardio: Rate: regular rate Rhythm: regular rhythm Peripheral pulses: P eripheral pulses 2+ throughout GI: Inspection: non-distended and scar (lower midline scar) GI Palp: Yes Soft to palpation, No Tenderness to palpation present (GI), No Guarding due to palpation present (GI), Yes No hepatosplenomegaly present, Yes Hernia present umbilical (wide reduced umbilical hernia) < 3 cm and No Rebound tenderness present Auscultation: normal bowel sounds Other: Gauze packing removed from anal verge which was saturated with old blood. There is an inflamed left posterior external hemorrhoid and appears to be the tip of a prolapsed internal hemorrhoid visible, no thrombosed hemorrhoid, no active bleeding Skin: General skin exam: normal color Neuro: General: moves all extremities and no focal motor deficits Speech: n ormal speech Motor exam (neuro): 5/5 motor strength present throughout Extrem: General: normal to inspection and no edema Psych: Mental Status: mental status grossly normal Attitude: cooperative Insight: Good insight present (Psych) Judgement: Good judgement present (Psych) Results Labs 10/26/24 11:02 10/25/24 23:10 Labs: Abnormal lab results 10/25/24 10/26/24 10/26/24 Range/Units 23:10 06:34 11:02 RBC 4.48 L (4.6-6.20) M/mm3 Hgb 13.7 L D 12.2 L (14.0-18.0) g/dL Hct 38.9 L (42.0-52.0) % MCHC 31.4 L (32-36) g/dl [place] % (Auto) 9.1 H (2.6-8.5) % Glucose 113 H (65-110) mg/dL POC Capillary Glucose 112 H (65-105) mg/dl Diabetes panel 10/25/24 Range/Units 23:10 Sodium 137 (137-145) mmol/L Potassium 3.7 (3.4-5.0) mmol/L Chloride 98 (98-107) mmol/L Carbon Dioxide 27 (22-30) mmol/L BUN 15 D (9-20) mg/dL Creatinine 0.70 (0.7-1.3) mg/dL Glucose 113 H (65-110) mg/dL Calcium 9.1 (8.4-10.2) mg/dL AST 25 (17-59) U/L ALT 14 (6-50) U/L Alkaline Phosphatase 87 (38-126) U/L Total Protein 8.0 (6.3-8.2) g/dL Albumin 4.4 (3.5-5.1) g/dL Calcium panel 10/25/24 Range/Units 23:10 Calcium 9.1 (8.4-10.2) mg/dL Albumin 4.4 (3.5-5.1) g/dL Pituitary panel 10/25/24 Range/Units 23:10 Sodium 137 (137-145) mmol/L Potassium 3.7 (3.4-5.0) mmol/L Chloride 98 (98-107) mmol/L Carbon Dioxide 27 (22-30) mmol/L BUN 15 D (9-20) mg/dL Creatinine 0.70 (0.7-1.3) mg/dL Glucose 113 H (65-110) mg/dL Calcium 9.1 (8.4-10.2) mg/dL Adrenal panel 10/25/24 Range/Units 23:10 Sodium 137 (137-145) mmol/L Potassium 3.7 (3.4-5.0) mmol/L Chloride 98 (98-107) mmol/L Carbon Dioxide 27 (22-30) mmol/L BUN 15 D (9-20) mg/dL Creatinine 0.70 (0.7-1.3) mg/dL Glucose 113 H (65-110) mg/dL Calcium 9.1 (8.4-10.2) mg/dL Total Bilirubin 1.3 (0.2-1.3) mg/dL AST 25 (17-59) U/L ALT 14 (6-50) U/L Alkaline Phosphatase 87 (38-126) U/L Total Protein 8.0 (6.3-8.2) g/dL Albumin 4.4 (3.5-5.1) g/dL All other labs normal. Imaging Additional studies: ITS Impressions Abdomen/Pelvis CT 10/26/24 05:14 Impression: No distinct etiology for GI bleed seen. Postoperative changes of the sigmoid colon with suspected constipation.
[2024-10-26 14:00] VITALS: BP 122/57; PULSE 81; RESP 16; TEMP 36.2; O2SAT 100
[2024-10-26] MEDS: polyethylene glycoL 3350 238 GM BOTTLE PO (16:44)
--- NOTE | 2024-10-26 17:16 | P.PNIM_ITS ---
Progress Note: A&P Assessment and Plan (1) External hemorrhoids: Code(s): K64.4 - Residual hemorrhoidal skin tags Status: Acute Assessment and Plan: * Acute on chronic with acute onset of bleeding this evening after constipation and having bowel movements * Hemoglobin and hematocrit normal at 13.7/42.7 respectively * General surgery and GI have been consulted. Patient is being kept NPO until general surgery evaluate. Plan for potential or this morning. * P.r.n. pain meds of morphine IV push. * As patient is NPO he is started on IV fluids for hydration. (2) Acute lower gastrointestinal bleeding: Code(s): K92.2 - Gastrointestinal hemorrhage, unspecified Status: Acute Assessment and Plan: * See 1. (3) High blood pressure: Code(s): I10 - Essential (primary) hypertension Status: Chronic Assessment and Plan: * Chronic in nature. * Patient's home meds are confirmed, however we are holding patient's medicat ions as he is NPO. Will order IV hydralazine p.r.n. with parameters for systolic blood pressure greater than 180 and diastolic greater than 90. (4) Paget's bone disease: Code(s): M88.9 - Osteitis deformans of unspecified bone Status: Chronic Assessment and Plan: * Chronic (5) Depression: Code(s): F32.A - Depression, unspecified Status: Chronic Assessment and Plan: * Chronic (6) Borderline diabetes: Code(s): R73.03 - Prediabetes Status: Chronic Assessment and Plan: * Chronic * As patient is NPO we will check glucose every 6 hours. Plan Patient with recurrent rectal bleeding suspect due to hemorrhoids, however prior to coming to the ER the bleeding more than normal so patient presented to the ER, seen by the GI and recommended flexible sigmoidoscopy which is scheduled for tomorrow morning and further recommendation to follow. 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 Patient reports he has painful hemorrhoids that have been known to bleed from time to time but states this is more bleeding than he has ever had. It is painful and bright red in color with occasional clots. Patient does not take any blood thinners or anti-platelet aggregates. Patient is a nonsmoker, does not partake of drugs or alcohol except alcohol socially and in moderation. Patient states he also has some occasional abdominal pain but notes he has been constipated as of recently. He denies any nausea, vomiting or diarrhea. A workup is performed in the emergency room with labs and imaging. CBC is unremarkable with a noted H&H of 13.7/42.7, unremarkable metabolic panel. CT abdomen and pelvis is performed and is pending at this time. ER physician spoke with general surgeon Dr. Min who advised he will take patient to the OR this morning. In addition Dr. Gamez has been placed on consult at the request of Dr. Min. Patient is being kept NPO at this time pending further evaluation. Patient's home meds have been confirmed however I have placed him on hold pending further evaluation by General surgery. Patient with recurrent rectal bleeding suspect due to hemorrhoids, however prior to coming to the ER the bleeding more than normal so patient presented to the ER, seen by the GI and recommended flexible sigmoidoscopy which is scheduled for tomorrow morning and further recommendation to follow. Review of Systems Review of Systems: All systems reviewed & are unremarkable except as noted in HPI and below Exam Narrative: Patient is comfortable, NAD HEENT: eyes are clear and none icteric LUNGS:CTA HEART: RR S1S2 ABD: BS+, Soft and nontender Lower extremities: no edema SKIN: nonjaundiced Neuro: grossly intact. Objective Data Vital Signs Vital Signs: Vital Signs - 24 hr 10/25/24 22:41 10/26/24 00:30 10/26/24 02:00 Temperature 36.6 C Pulse Rate 106 H 88 88 Respiratory Rate 18 16 18 Blood Pressure 129/80 126/65 115/70 Pulse Oximetry 97 100 99 Oxygen Delivery 10/26/24 03:36 10/26/24 03:41 10/26/24 05:24 Temperature 36.8 C 36.3 C L Pulse Rate 88 84 Respiratory Rate 16 20 Blood Pressure 116/62 129/71 Pulse Oximetry 98 98 Oxygen Delivery Room Air 10/26/24 08:00 10/26/24 14:00 Temperature 36.2 C L Pulse Rate 81 Respiratory Rate 16 Blood Pressure 122/57 L Pulse Oximetry 100 Oxygen Delivery Room Air Intake/Output Intake/Output: Intake & Output 10/23/24 10/24/24 10/25/24 10/26/24 23:59 23:59 23:59 23:59 Intake Total 1000 Output Total 200 Balance 800 Meds/Results Medications: Active Medications Generic Name Dose Route Start Last Admin Trade Name Freq PRN Reason Stop Dose Admin Albuterol 1 puff 10/26/24 03:31 Albuterol Sulfate (*Sp) Aerosol 1 Puff INHALATION Q12HRT PRN shortness of breath or wheezing Hydralazine HCl 10 mg 10/26/24 03:36 Hydralazine Hcl 20 Mg/Ml Vial IV PUSH Q8H PRN Blood Pressure - High Sodium Chloride 1,000 mls @ 100 mls/hr 10/26/24 03:40 10/26/24 14:34 Normal Saline Iv IV CONT 100 mls/hr .Q10H JUN Administration Morphine Sulfate 2 mg 10/26/24 03:36 Morphine Sulfate (*Crx) 2 Mg/Ml Inj IV PUSH Q4H PRN Pain Rated 7-10 Ondansetron HCl 4 mg 10/26/24 03:37 Ondansetron Inj 4 Mg/2 Ml Vial IV PUSH Q4H PRN Nausea And Vomiting Witch Xenia 1 pad 10/26/24 13:24 Witch Xenia 40 Pads TOPICAL PRN PRN Perineal Discomfort Radiology Results: ITS Impressions Abdomen/Pelvis CT 10/26/24 05:14 Impression: No distinct etiology for GI bleed seen. Postoperative changes of the sigmoid colon with suspected constipation. Labs Labs: Laboratory Results - last 24 hr 10/25/24 10/26/24 10/26/24 23:10 06:34 11:02 WBC 5.7 4.7 RBC 4.97 4.48 L Hgb 13.7 L D 12.2 L Hct 42.7 38.9 L MCV 85.9 86.8 MCH 27.6 27.2 MCHC 32.1 31.4 L RDW 13.4 13.5 Plt Count 239 170 MPV 10.2 9.3 Immature Gran % (Auto) 0.3 Neut % (Auto) 69.8 Lymph % (Auto) 18.9 [place] % (Auto) 9.1 H Eos % (Auto) 1.7 Baso % (Auto) 0.2 Lymph # (Auto) 1.08 [place] # (Auto) 0.5 Eos # (Auto) 0.1 Baso # (Auto) 0.0 Abs Immat Gran (auto) 0.02 Absolute Neuts (auto) 4.0 Absolute Nucleated RBC 0.000 Nucleated RBC % 0.0 PT 13.5 INR 1.0 APTT 33.4 Sodium 137 Potassium 3.7 Chloride 98 Carbon Dioxide 27 Anion Gap 12 BUN 15 D Creatinine 0.70 Estim Creat Clear Calc 92 Estimated GFR > 60 Glucose 113 H POC Capillary Glucose 112 H Lactic Acid 0.8 Calcium 9.1 Magnesium 1.8 Total Bilirubin 1.3 AST 25 ALT 14 Alkaline Phosphatase 87 Total Protein 8.0 Albumin 4.4 Blood Type A Positive Antibody Screen Negative 10/26/24 11:36 WBC RBC Hgb Hct MCV MCH MCHC RDW Plt Count MPV Immature Gran % (Auto) Neut % (Auto) Lymph % (Auto) [place] % (Auto) Eos % (Auto) Baso % (Auto) Lymph # (Auto) [place] # (Auto) Eos # (Auto) Baso # (Auto) Abs Immat Gran (auto) Absolute Neuts (auto) Absolute Nucleated RBC Nucleated RBC % PT INR APTT Sodium Potassium Chloride Carbon Dioxide Anion Gap BUN Creatinine Estim Creat Clear Calc Estimated GFR Glucose POC Capillary Glucose 98 Lactic Acid Calcium Magnesium Total Bilirubin AST ALT Alkaline Phosphatase Total Protein Albumin Blood Type Antibody Screen Quality VTE Prophylaxis VTE prophylaxis: mechanical ordered
[2024-10-26 18:08] LABS: Glucose Point of Care 158 mg/dl (65-105)
[2024-10-26 22:00] VITALS: BP 137/71; PULSE 87; RESP 18; TEMP 36.8; O2SAT 98
[2024-10-27] VITALS (11 sets, daily range): BP systolic 103–152; BP diastolic 65–96; PULSE 67–93; RESP 16–20; TEMP 36.3–37.6; O2SAT 94–100
[2024-10-27 06:22] LABS: Glucose Point of Care 106 mg/dl (65-105)
[2024-10-27 07:29] LABS: Hematocrit 35.2 % (42.0-52.0); Hemoglobin 11.1 g/dL (14.0-18.0); Mean Corpuscular HGB Conc 31.5 g/dl (32-36); Mean Corpuscular Hemoglobin 27.5 pg (26-34); Mean Corpuscular Volume 87.3 fl (80-100); Mean Platelet Volume 9.6 fl (7.4-10.4); Platelet Count Result 161 k/mm3 (150-375); Red Blood Count 4.03 M/mm3 (4.6-6.20); Red Cell Distribution Width 13.3 % (11.5-14.5); White Blood Count 5.8 K/mm3 (4.5-10.0)
[2024-10-27 07:44] LABS: Anion Gap 6 mmol/L (4-12); Blood Urea Nitrogen 10 mg/dL (9-20); Carbon Dioxide 28 mmol/L (22-30); Chloride 105 mmol/L (98-107); Estimated CRCL calculation 98 ml/min; Estimated Glomerular Filt Rate > 60; Glucose 114 mg/dL (65-110); Magnesium 1.9 mg/dL (1.6-2.3); Potassium 3.5 mmol/L (3.4-5.0); Sodium 139 mmol/L (137-145)
--- NOTE | 2024-10-27 11:02 | P.PNGS_ITS ---
Progress Note: A&P Assessment and Plan (1) Bleeding hemorrhoids: Code(s): K64.9 - Unspecified hemorrhoids Status: Acute Assessment and Plan: * No significant bleeding since admission. Able to tolerate the bowel prep and he is scheduled for a flex sig today by GI. * Continue supportive care and monitoring * May be able to treat conservatively and have him follow up as an outpatient depending on endoscopy results (2) Acute lower gastrointestinal bleeding: Code(s): K92.2 - Gastrointestinal hemorrhage, unspecified Status: Acute Assessment and Plan: * Resolving. GI planning flex sig to evaluate (3) Anemia: Code(s): D64.9 - Anemia, unspecified Status: Chronic Assessment and Plan: * Hemoglobin down slightly to 11.1, continue to trend. No significant bleeding with his bowel prep Plan I have discussed the patient's case and plan of care with Dr. Min Subjective Subjective Date/Time Seen: 10/27/24 11:02 Interval history: No acute issues overnight. Able to tolerate the bowel prep. Reports some mild spotting of drops of blood on toilet paper with his bowel movements during the prep, but no significant bleeding. Exam Const: General: comfortable and no acute distress GI: Inspection: non-distended GI Palp: Yes Soft to palpation, No Tenderness to palpation present (GI) and No Guarding due to palpation present (GI) Other: External and internal prolapsed hemorrhoids visible with no active bleeding Objective Data Vital Signs Vital Signs: Vital Signs - 24 hr 10/26/24 14:00 10/26/24 20:00 10/26/24 22:00 Temperature 97.1 F L 98.2 F Pulse Rate 81 87 Respiratory Rate 16 18 Blood Pressure 122/57 L 137/71 Pulse Oximetry 100 98 Oxygen Delivery Room Air 10/27/24 06:00 Temperature 97.8 F Pulse Rate 91 Respiratory Rate 18 Blood Pressure 144/68 H Pulse Oximetry 99 Oxygen Delivery Intake/Output Intake/Output: Intake & Output 10/24/24 10/25/24 10/26/24 10/27/24 23:59 23:59 23:59 23:59 Intake Total 1236 0 Output Total 1150 Balance 86 0 Meds/Results Medications: Active Medications Generic Name Dose Route Start Last Admin Trade Name Freq PRN Reason Stop Dose Admin Albuterol 1 puff 10/26/24 03:31 Albuterol Sulfate (*Sp) Aerosol 1 Puff INHALATION Q12HRT PRN shortness of breath or wheezing Hydralazine HCl 10 mg 10/26/24 03:36 Hydralazine Hcl 20 Mg/Ml Vial IV PUSH Q8H PRN Blood Pressure - High Sodium Chloride 1,000 mls @ 100 mls/hr 10/26/24 03:40 10/26/24 14:34 Normal Saline Iv IV CONT 100 mls/hr .Q10H JUN Administration Morphine Sulfate 2 mg 10/26/24 03:36 Morphine Sulfate (*Crx) 2 Mg/Ml Inj IV PUSH Q4H PRN Pain Rated 7-10 Ondansetron HCl 4 mg 10/26/24 03:37 Ondansetron Inj 4 Mg/2 Ml Vial IV PUSH Q4H PRN Nausea And Vomiting Witch Xenia 1 pad 10/26/24 13:24 Witch Xenia 40 Pads TOPICAL PRN PRN Perineal Discomfort Radiology Results: ITS Impressions Abdomen/Pelvis CT 10/26/24 05:14 Impression: No distinct etiology for GI bleed seen. Postoperative changes of the sigmoid colon with suspected constipation. Labs Labs: Laboratory Results - last 24 hr 10/26/24 10/26/24 10/26/24 11:02 11:36 17:54 WBC 4.7 RBC 4.48 L Hgb 12.2 L Hct 38.9 L MCV 86.8 MCH 27.2 MCHC 31.4 L RDW 13.5 Plt Count 170 MPV 9.3 PT 13.5 INR 1.0 APTT 33.4 Sodium Potassium Chloride Carbon Dioxide Anion Gap BUN Creatinine Estim Creat Clear Calc Estimated GFR Glucose POC Capillary Glucose 98 158 H Calcium Magnesium 10/27/24 10/27/24 06:19 07:16 WBC 5.8 RBC 4.03 L Hgb 11.1 L Hct 35.2 L MCV 87.3 MCH 27.5 MCHC 31.5 L RDW 13.3 Plt Count 161 MPV 9.6 PT INR APTT Sodium 139 Potassium 3.5 Chloride 105 Carbon Dioxide 28 Anion Gap 6 BUN 10 D Creatinine 0.65 L Estim Creat Clear Calc 98 Estimated GFR > 60 Glucose 114 H POC Capillary Glucose 106 H Calcium 8.0 L Magnesium 1.9
[2024-10-27] MEDS: LACTATED RINGERS 1,000 ML 150 ML IV CONT (12:20)
--- NOTE | 2024-10-27 12:51 | P.PNAN_ITS ---
Anes - Initial Pre Proc Eval Procedure: Operation Date: 10/27/24 15:30 Proposed Procedures p Flexible Sigmoidoscopy - Shan Petty MD Date/Time: 10/27/24 12:51 Surgeon: Panda Luke MD Pre Op Diagnosis: Bleeding hemorrhoids Patient Data Age: 74 Gender: M Height: 1.78 m Weight: 97.2 kg Last Vital Signs Temp 36.3 C L 10/27/24 12:15 Pulse 76 10/27/24 12:15 Resp 18 10/27/24 12:15 BP 135/77 10/27/24 12:15 Pulse Ox 100 10/27/24 12:15 O2 Del Method Room Air 10/27/24 12:15 Allergies Allergy/AdvReac Type Severity Reaction Status Date / Time lisinopril Allergy Severe Swelling Verified 10/27/24 12:12 Penicillins Allergy Mild swelling Verified 10/27/24 12:12 eyelid, lips and hives Home Medications ?Medication ?Instructions ?Recorded ?Confirmed ?Type cholecalciferol (vitamin D3) 25 25 mcg PO DAILY 01/04/20 10/26/24 History mcg (1,000 unit) capsule ferrous sulfate 325 mg (65 mg 325 mg PO DAILY 01/04/20 10/26/24 History iron) tablet (Feosol) montelukast 4 mg chewable tablet See Rx Instructions PO .COMPLEX 01/04/20 10/26/24 History sertraline 100 mg tablet 100 mg PO DAILY 01/04/20 10/26/24 History vitamin B complex (B 1 tablet PO DAILY 01/04/20 10/26/24 History Complex-Vitamin B12 tablet) albuterol sulfate 90 mcg/actuation 1 puff inhalation BID PRN 10/26/24 10/26/24 History aerosol inhaler shortness of breath or wheezing hydralazine 25 mg tablet 25 mg PO BID 10/26/24 10/26/24 History metformin 500 mg tablet,extended 500 mg PO DAILY 10/26/24 10/26/24 History release 24 hr (Glucophage XR) omeprazole 20 mg capsule,delayed 20 mg PO DAILY 10/26/24 10/26/24 History release propranolol 10 mg tablet 10 mg PO Q8H 10/26/24 10/26/24 History rosuvastatin 5 mg tablet 5 mg PO DAILY 10/26/24 10/26/24 History triamterene 37.5 1 tablet PO DAILY 10/26/24 10/26/24 History mg-hydrochlorothiazide 25 mg tablet Laboratory Tests 10/26/24 10/27/24 10/27/24 17:54 06:19 07:16 WBC 5.8 K/mm3 (4.5-10.0) RBC 4.03 L M/mm3 (4.6-6.20) Hgb 11.1 L g/dL (14.0-18.0) Hct 35.2 L % (42.0-52.0) MCV 87.3 fl (80-100) MCH 27.5 pg (26-34) MCHC 31.5 L g/dl (32-36) RDW 13.3 % (11.5-14.5) Plt Count 161 k/mm3 (150-375) MPV 9.6 fl (7.4-10.4) Sodium 139 mmol/L (137-145) Potassium 3.5 mmol/L (3.4-5.0) Chloride 105 mmol/L (98-107) Carbon Dioxide 28 mmol/L (22-30) Anion Gap 6 mmol/L (4-12) BUN 10 D mg/dL (9-20) Creatinine 0.65 L mg/dL (0.7-1.3) Estim Creat Clear Calc 98 ml/min Estimated GFR > 60 (59 - ) Glucose 114 H mg/dL (65-110) POC Capillary Glucose 158 H mg/dl 106 H mg/dl (65-105) (65-105) Calcium 8.0 L mg/dL (8.4-10.2) Magnesium 1.9 mg/dL (1.6-2.3) Patient hx anesthesia problems: none Family hx anesthesia problems: none Results Review: All pre-operative results and documents have been reviewed as part of the pre- operative evaluation. [facility] Past Medical History Medical History Depression Borderline diabetes Surgical History Surgical History History of colonoscopy History of partial colectomy History sigmoidectomy for sigmoid volvulus in 2023 Social History Social History Smoking status: Former smoker Do You Feel Safe in your Home?: Yes Lack of Transportation: YES Lack of Food: Never True Current Housing: I Have Housing Concerned About Future Housing: YES Difficulty Paying Gas/Electric Bills: YES Difficulty Paying for Meds: No Currently Unemployed: No Education: Master's Degree or Higher Difficulty w/ Childcare or Family Care: No Spiritual care concerns: No Anes - Eval Final PreProcedure Day of Procedure 10/27/24 12:51 Patient weight: obese Heart: regular rate and rhythm Lungs: decreased breath sounds Airway: Mallampati scale class III Neurological: alert and oriented Last oral intake: >/= 8 hours ASA classification: III Emergent: no Anesthetic plan: proceed Anesthesia type and monitoring: general GIVS and standard monitoring Results Review: All pre-operative results and documents have been reviewed as part of the pre- operative evaluation. Informed Consent: The patient's anesthetic plan and its attendant risks and benefits were discussed with the patient/family/POA. Questions were solicited and answers pr ovided to the satisfaction of the patient/family/POA.
--- NOTE | 2024-10-27 13:14 | SUR.OPER ---
2 of 3 transverse colon polyps retrieved, MD Franco avitia
[2024-10-27] MEDS: MORPHINE SULFATE (*CRX) 2 MG/ML INJ IV PUSH ×3 (14:28→23:23)
[2024-10-27 14:34] LABS: Glucose Point of Care 85 mg/dl (65-105)
--- NOTE | 2024-10-27 15:37 | P.PNIM_ITS ---
Progress Note: A&P Assessment and Plan (1) External hemorrhoids: Code(s): K64.4 - Residual hemorrhoidal skin tags Status: Acute Assessment and Plan: * Acute on chronic with acute onset of bleeding this evening after constipation and having bowel movements * Hemoglobin and hematocrit normal at 13.7/42.7 respectively * General surgery and GI have been consulted. Patient is being kept NPO until general surgery evaluate. Plan for potential or this morning. * P.r.n. pain meds of morphine IV push. * As patient is NPO he is started on IV fluids for hydration. (2) Acute lower gastrointestinal bleeding: Code(s): K92.2 - Gastrointestinal hemorrhage, unspecified Status: Acute Assessment and Plan: * See 1. (3) High blood pressure: Code(s): I10 - Essential (primary) hypertension Status: Chronic Assessment and Plan: * Chronic in nature. * Patient's home meds are confirmed, however we are holding patient's medicat ions as he is NPO. Will order IV hydralazine p.r.n. with parameters for systolic blood pressure greater than 180 and diastolic greater than 90. (4) Paget's bone disease: Code(s): M88.9 - Osteitis deformans of unspecified bone Status: Chronic Assessment and Plan: * Chronic (5) Depression: Code(s): F32.A - Depression, unspecified Status: Chronic Assessment and Plan: * Chronic (6) Borderline diabetes: Code(s): R73.03 - Prediabetes Status: Chronic Assessment and Plan: * Chronic * As patient is NPO we will check glucose every 6 hours. Plan Patient with recurrent rectal bleeding suspect due to hemorrhoids, however prior to coming to the ER the bleeding more than normal so patient presented to the ER, seen by the GI and recommended flexible sigmoidoscopy which is scheduled for today remains clinically stable, no rectal bleeding, and will follow up on scope and plan. 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 Patient reports he has painful hemorrhoids that have been known to bleed from time to time but states this is more bleeding than he has ever had. It is painful and bright red in color with occasional clots. Patient does not take any blood thinners or anti-platelet aggregates. Patient is a nonsmoker, does not partake of drugs or alcohol except alcohol socially and in moderation. Patient states he also has some occasional abdominal pain but notes he has been constipated as of recently. He denies any nausea, vomiting or diarrhea. A workup is performed in the emergency room with labs and imaging. CBC is unremarkable with a noted H&H of 13.7/42.7, unremarkable metabolic panel. CT abdomen and pelvis is performed and is pending at this time. ER physician spoke with general surgeon Dr. Min who advised he will take patient to the OR this morning. In addition Dr. Gamez has been placed on consult at the request of Dr. Min. Patient is being kept NPO at this time pending further evaluation. Patient's home meds have been confirmed however I have placed him on hold pending further evaluation by General surgery. Patient with recurrent rectal bleeding suspect due to hemorrhoids, however prior to coming to the ER the bleeding more than normal so patient presented to the ER, seen by the GI and recommended flexible sigmoidoscopy which is scheduled for today remains clinically stable, no rectal bleeding, and will follow up on scope and plan. Review of Systems Review of Systems: All systems reviewed & are unremarkable except as noted in HPI and below Exam Narrative: Patient is comfortable, NAD HEENT: eyes are clear and none icteric LUNGS:CTA HEART: RR S1S2 ABD: BS+, Soft and nontender Lower extremities: no edema SKIN: nonjaundiced Neuro: grossly intact. Objective Data Vital Signs Vital Signs: Vital Signs - 24 hr 10/26/24 20:00 10/26/24 22:00 10/27/24 06:00 Temperature 36.8 C 36.6 C Pulse Rate 87 91 Respiratory Rate 18 18 Blood Pressure 137/71 144/68 H Pulse Oximetry 98 99 Oxygen Delivery Room Air 10/27/24 08:00 10/27/24 12:15 10/27/24 13:13 Temperature 36.3 C L Pulse Rate 76 80 Respiratory Rate 18 18 Blood Pressure 135/77 103/67 Pulse Oximetry 100 96 Oxygen Delivery Room Air Room Air Room Air 10/27/24 13:23 10/27/24 13:33 10/27/24 13:50 Temperature 36.3 C L Pulse Rate 79 76 67 Respiratory Rate 19 20 20 Blood Pressure 109/66 123/96 H 130/82 Pulse Oximetry 97 99 100 Oxygen Delivery Room Air Room Air 10/27/24 14:10 10/27/24 14:40 Temperature 36.4 C 36.4 C Pulse Rate 70 70 Respiratory Rate 20 20 Blood Pressure 131/80 130/79 Pulse Oximetry 99 100 Oxygen Delivery Intake/Output Intake/Output: Intake & Output 10/24/24 10/25/24 10/26/24 10/27/24 23:59 23:59 23:59 23:59 Intake Total 1236 800 Output Total 1150 Balance 86 800 Meds/Results Medications: Active Medications Generic Name Dose Route Start Last Admin Trade Name Freq PRN Reason Stop Dose Admin Albuterol 1 puff 10/26/24 03:31 Albuterol Sulfate (*Sp) Aerosol 1 Puff INHALATION Q12HRT PRN shortness of breath or wheezing Hydralazine HCl 10 mg 10/26/24 03:36 Hydralazine Hcl 20 Mg/Ml Vial IV PUSH Q8H PRN Blood Pressure - High Hydrocortisone Acetate 25 mg 10/27/24 21:00 Hydrocortisone Acetate 25 Mg Suppository RECTAL Q12HR JUN Sodium Chloride 1,000 mls @ 100 mls/hr 10/26/24 03:40 10/27/24 13:12 Normal Saline Iv IV CONT Infused .Q10H JUN Infusion Morphine Sulfate 2 mg 10/26/24 03:36 10/27/24 14:28 Morphine Sulfate (*Crx) 2 Mg/Ml Inj IV PUSH 2 mg Q4H PRN Administration Pain Rated 7-10 Ondansetron HCl 4 mg 10/26/24 03:37 Ondansetron Inj 4 Mg/2 Ml Vial IV PUSH Q4H PRN Nausea And Vomiting Witch Xenia 1 pad 10/26/24 13:24 Witch Xenia 40 Pads TOPICAL PRN PRN Perineal Discomfort Radiology Results: ITS Impressions Abdomen/Pelvis CT 10/26/24 05:14 Impression: No distinct etiology for GI bleed seen. Postoperative changes of the sigmoid colon with suspected constipation. Labs Labs: Laboratory Results - last 24 hr 10/26/24 10/27/24 10/27/24 17:54 06:19 07:16 WBC 5.8 RBC 4.03 L Hgb 11.1 L Hct 35.2 L MCV 87.3 MCH 27.5 MCHC 31.5 L RDW 13.3 Plt Count 161 MPV 9.6 Sodium 139 Potassium 3.5 Chloride 105 Carbon Dioxide 28 Anion Gap 6 BUN 10 D Creatinine 0.65 L Estim Creat Clear Calc 98 Estimated GFR > 60 Glucose 114 H POC Capillary Glucose 158 H 106 H Calcium 8.0 L Magnesium 1.9 10/27/24 12:18 WBC RBC Hgb Hct MCV MCH MCHC RDW Plt Count MPV Sodium Potassium Chloride Carbon Dioxide Anion Gap BUN Creatinine Estim Creat Clear Calc Estimated GFR Glucose POC Capillary Glucose 85 Calcium Magnesium Quality VTE Prophylaxis VTE prophylaxis: mechanical ordered
[2024-10-27 17:46] LABS: Glucose Point of Care 72 mg/dl (65-105)
[2024-10-27] MEDS: HYDROCORTISONE ACETATE 25 MG SUPPOSITORY RECTAL (20:36)
[2024-10-27 20:55] LABS: Glucose Point of Care 110 mg/dl (65-105)
[2024-10-27] MEDS: PROPRANOLOL HCL 10 MG TABLET PO (23:31)
[2024-10-28] VITALS (7 sets, daily range): BP systolic 114–130; BP diastolic 61–68; PULSE 76–88; RESP 16; TEMP 36.3–36.9; O2SAT 95–97
[2024-10-28 06:14] LABS: Hematocrit 34.6 % (42.0-52.0); Hemoglobin 10.7 g/dL (14.0-18.0); Immature Platelet Fraction Pct 2.1 % (0.9-11.2); Mean Corpuscular HGB Conc 30.9 g/dl (32-36); Mean Corpuscular Hemoglobin 27.4 pg (26-34); Mean Corpuscular Volume 88.5 fl (80-100); Mean Platelet Volume 9.8 fl (7.4-10.4); Platelet Count Result 148 k/mm3 (150-375); Red Blood Count 3.91 M/mm3 (4.6-6.20); Red Cell Distribution Width 13.5 % (11.5-14.5); White Blood Count 6.7 K/mm3 (4.5-10.0)
[2024-10-28 06:30] LABS: Anion Gap 3 mmol/L (4-12); Blood Urea Nitrogen 8 mg/dL (9-20); Calcium 8.2 mg/dL (8.4-10.2); Carbon Dioxide 29 mmol/L (22-30); Chloride 106 mmol/L (98-107); Estimated CRCL calculation 87 ml/min; Estimated Glomerular Filt Rate > 60; Glucose 115 mg/dL (65-110); Potassium 3.7 mmol/L (3.4-5.0); Sodium 138 mmol/L (137-145)
[2024-10-28 07:59] LABS: Glucose Point of Care 136 mg/dl (65-105)
[2024-10-28] MEDS: HYDROCORTISONE ACETATE 25 MG SUPPOSITORY RECTAL (10:30)
[2024-10-28] MEDS: PROPRANOLOL HCL 10 MG TABLET PO ×3 (10:31→16:05)
--- NOTE | 2024-10-28 11:40 | PM.PNGS ---
Progress Note: A&P Assessment and Plan (1) Acute lower gastrointestinal bleeding: Code(s): K92.2 - Gastrointestinal hemorrhage, unspecified Status: Acute Assessment and Plan: likely secondary to hemorrhoids, colonoscopy report reviewed, exam benign, no further bleeding, cont conservative treatment of hemorrhoids, ok to dc from surgical standpoint and f/u as outpt Subjective Subjective Date/Time Seen: 10/28/24 11:40 Interval history: feels good this am, nicolas diet, no further bleeding Review of Systems Review of Systems: All systems reviewed & are unremarkable except as noted in HPI and below Exam Const: General: cooperative, comfortable and no acute distress Resp: Auscultation: clear to auscultation bilaterally Cardio: Rate: regular rate Rhythm: regular rhythm GI: Inspection: normal to inspection and distended GI Palp: No abdominal tenderness Objective Data Vital Signs Vital Signs: Vital Signs - 24 hr 10/27/24 12:15 10/27/24 13:13 10/27/24 13:23 Temperature 36.3 C L Pulse Rate 76 80 79 Respiratory Rate 18 18 19 Blood Pressure 135/77 103/67 109/66 Pulse Oximetry 100 96 97 Oxygen Delivery Room Air Room Air Room Air 10/27/24 13:33 10/27/24 13:50 10/27/24 14:10 Temperature 36.3 C L 36.4 C Pulse Rate 76 67 70 Respiratory Rate 20 20 20 Blood Pressure 123/96 H 130/82 131/80 Pulse Oximetry 99 100 99 Oxygen Delivery Room Air 10/27/24 14:40 10/27/24 21:16 10/27/24 23:31 Temperature 36.4 C 36.6 C Pulse Rate 70 93 86 Respiratory Rate 20 18 Blood Pressure 130/79 152/80 H Pulse Oximetry 100 97 Oxygen Delivery 10/27/24 23:42 10/28/24 04:00 10/28/24 08:00 Temperature 37.6 C 36.9 C 36.3 C L Pulse Rate 86 88 84 Respiratory Rate 16 16 16 Blood Pressure 120/65 128/68 130/64 Pulse Oximetry 94 95 97 Oxygen Delivery 10/28/24 09:29 10/28/24 10:31 Temperature Pulse Rate 84 Respiratory Rate Blood Pressure Pulse Oximetry 96 Oxygen Delivery Room Air Intake/Output Intake/Output: Intake & Output 10/25/24 10/26/24 10/27/24 10/28/24 23:59 23:59 23:59 23:59 Intake Total 1236 1410 690 Output Total 1150 1000 1050 Balance 86 410 -360 Meds/Results Medications: Active Medications Generic Name Dose Route Start Last Admin Trade Name Freq PRN Reason Stop Dose Admin Albuterol 1 puff 10/26/24 03:31 Albuterol Sulfate (*Sp) Aerosol 1 Puff INHALATION Q12HRT PRN shortness of breath or wheezing Hydralazine HCl 10 mg 10/26/24 03:36 Hydralazine Hcl 20 Mg/Ml Vial IV PUSH Q8H PRN Blood Pressure - High Hydrocortisone Acetate 25 mg 10/27/24 21:00 10/28/24 10:30 Hydrocortisone Acetate 25 Mg Suppository RECTAL 25 mg Q12HR JUN Administration Morphine Sulfate 2 mg 10/26/24 03:36 10/27/24 23:23 Morphine Sulfate (*Crx) 2 Mg/Ml Inj IV PUSH 2 mg Q4H PRN Administration Pain Rated 7-10 Ondansetron HCl 4 mg 10/26/24 03:37 Ondansetron Inj 4 Mg/2 Ml Vial IV PUSH Q4H PRN Nausea And Vomiting Propranolol HCl 10 mg 10/28/24 09:00 10/28/24 10:31 Propranolol Hcl 10 Mg Tablet PO 10 mg TID JUN Administration Witch Xenia 1 pad 10/26/24 13:24 Witch Xenia 40 Pads TOPICAL PRN PRN Perineal Discomfort Radiology Results: ITS Impressions Abdomen/Pelvis CT 10/26/24 05:14 Impression: No distinct etiology for GI bleed seen. Postoperative changes of the sigmoid colon with suspected constipation. Labs Labs: Laboratory Results - last 24 hr 10/27/24 10/27/24 10/27/24 12:18 17:43 20:06 WBC RBC Hgb Hct MCV MCH MCHC RDW Plt Count MPV % Immature Plt Fraction Sodium Potassium Chloride Carbon Dioxide Anion Gap BUN Creatinine Estim Creat Clear Calc Estimated GFR Glucose POC Capillary Glucose 85 72 110 H Calcium Magnesium 10/28/24 10/28/24 05:55 07:30 WBC 6.7 RBC 3.91 L Hgb 10.7 L Hct 34.6 L MCV 88.5 MCH 27.4 MCHC 30.9 L RDW 13.5 Plt Count 148 L MPV 9.8 % Immature Plt Fraction 2.1 Sodium 138 Potassium 3.7 Chloride 106 Carbon Dioxide 29 Anion Gap 3 L BUN 8 L Creatinine 0.74 Estim Creat Clear Calc 87 Estimated GFR > 60 Glucose 115 H POC Capillary Glucose 136 H Calcium 8.2 L Magnesium 2.0
[2024-10-28 11:45] LABS: Glucose Point of Care 103 mg/dl (65-105)
--- NOTE | 2024-10-28 16:24 | P.DS_ITS ---
DS: Admitting Diagnosis Discharge Date 10/28/24 Admitting Diagnosis Rectal bleeding DS: Discharge Diagnosis Discharge Diagnosis (1) External hemorrhoids: Code(s): K64.4 - Residual hemorrhoidal skin tags Status: Acute Assessment and Plan: * Acute on chronic with acute onset of bleeding this evening after constipation and having bowel movements * Hemoglobin and hematocrit normal at 13.7/42.7 respectively * General surgery and GI have been consulted. Patient is being kept NPO until general surgery evaluate. Plan for potential or this morning. * P.r.n. pain meds of morphine IV push. * As patient is NPO he is started on IV fluids for hydration. (2) Acute lower gastrointestinal bleeding: Code(s): K92.2 - Gastrointestinal hemorrhage, unspecified Status: Acute Assessment and Plan: * See 1. (3) High blood pressure: Code(s): I10 - Essential (primary) hypertension Status: Chronic Assessment and Plan: * Chronic in nature. * Patient's home meds are confirmed, however we are holding patient's medications as he is NPO. Will order IV hydralazine p.r.n. with parameters for systolic blood pressure greater than 180 and diastolic greater than 90. (4) Paget's bone disease: Code(s): M88.9 - Osteitis deformans of unspecified bone Status: Chronic Assessment and Plan: * Chronic (5) Depression: Code(s): F32.A - Depression, unspecified Status: Chronic Assessment and Plan: * Chronic (6) Borderline diabetes: Code(s): R73.03 - Prediabetes Status: Chronic Assessment and Plan: * Chronic * As patient is NPO we will check glucose every 6 hours. Plan Patient with recurrent rectal bleeding suspect due to hemorrhoids, however prior to coming to the ER the bleeding more than normal so patient presented to the ER, seen by the GI and recommended flexible sigmoidoscopy which is scheduled for today remains clinically stable, no rectal bleeding, and will follow up on scope and plan. DS: Summary Hospital Course Hospital Course: Patient with recurrent rectal bleeding suspect due to hemorrhoids, however prior to coming to the ER the bleeding more than normal so patient presented to the ER, seen by the GI and recommended flexible sigmoidoscopy which is scheduled for today remains clinically stable, no rectal bleeding, and will follow up on scope and plan. patient had flexible sigmoidoscopy there were some polyps excised and patient has rectal prolapse, patient will follow up with general surgery as an outpatient. patient pain is better and there is no bleeding, will discharge home today. Time Spent with Patient Time attestation: Total time spent providing and/or coordinating discharge services: Exam Narrative: Patient is comfortable, NAD HEENT: eyes are clear and none icteric LUNGS:CTA HEART: RR S1S2 ABD: BS+, Soft and nontender Lower extremities: no edema SKIN: nonjaundiced Neuro: grossly intact. DS: Data Data Completed and Pending Completed studies during hospitalization: Pending at discharge 10/27/24 13:07 Surgical [PTH] Routine Labs on day of discharge: Labs from last 24 hours 10/28/24 10/28/24 10/28/24 11:38 07:30 05:55 WBC 6.7 RBC 3.91 L Hgb 10.7 L Hct 34.6 L MCV 88.5 MCH 27.4 MCHC 30.9 L RDW 13.5 Plt Count 148 L MPV 9.8 % Immature Plt Fraction 2.1 Sodium 138 Potassium 3.7 Chloride 106 Carbon Dioxide 29 Anion Gap 3 L BUN 8 L Creatinine 0.74 Estim Creat Clear Calc 87 Estimated GFR > 60 Glucose 115 H POC Capillary Glucose 103 136 H Calcium 8.2 L Magnesium 2.0 10/27/24 10/27/24 20:06 17:43 WBC RBC Hgb Hct MCV MCH MCHC RDW Plt Count MPV % Immature Plt Fraction Sodium Potassium Chloride Carbon Dioxide Anion Gap BUN Creatinine Estim Creat Clear Calc Estimated GFR Glucose POC Capillary Glucose 110 H 72 Calcium Magnesium Discharge Plan Discharge Attending physician on discharge: Panda Luke Consulting providers: Tiffanie Min; Shan Petty; Faith Sotelo; Ana Emanuel; Ce Trujillo; José Luis Cadena; Martin De Souza Discharging Clinician: Jesus Arevalo Patient Disposition: Home Activity: as tolerated Diet: heart healthy and high fiber Discharge Instructions: patient to follow discharge care instruction from his GI and follow up as scheduled, patient to follow up with his surgeon as scheduled, patient to follow up with his primary care provider as soon as possible, patient is instructed if any symptoms redevelop to go to nearest ER. Patient Language: Gabonese Stand Alone Forms: General Discharge Information Follow-up/Referrals: Tiffanie Min MD [Physician] - 2 Weeks Sofia,Michael aSrah MD [Primary Care Provider] - Shan Petty MD [Physician] - Discharge Medications: New hydrocortisone acetate [Anusol-HC] 25 mg Suppository 25 mg RECTAL Q12HR Qty: 24 0RF Preparation H (Witch Xenia) 50 % Pads, Medicated 1 pad topical PRN PRN (Reason: Perineal Discomfort) Qty: 30 0RF Continued sertraline 100 mg tablet 100 mg PO DAILY montelukast 4 mg tablet,chewable See Rx Instructions PO .COMPLEX Rx Instructions: PO; vitamin B complex [B Complex-Vitamin B12] Tablet 1 tablet PO DAILY cholecalciferol (vitamin D3) 25 mcg (1,000 unit) capsule 25 mcg PO DAILY ferrous sulfate [Feosol] 325 mg (65 mg iron) tablet 325 mg PO DAILY albuterol sulfate 90 mcg/actuation HFA aerosol inhaler 1 puff inhalation BID PRN (Reason: shortness of breath or wheezing) hydralazine 25 mg tablet 25 mg PO BID triamterene-hydrochlorothiazid 37.5-25 mg tablet 1 tablet PO DAILY rosuvastatin 5 mg tablet 5 mg PO DAILY omeprazole 20 mg capsule,delayed release(DR/EC) 20 mg PO DAILY metformin [Glucophage XR] 500 mg tablet extended release 24 hr 500 mg PO DAILY propranolol 10 mg tablet 10 mg PO Q8H Date of admission: 10/26/24 01:38 Primary Care Provider: Sofia,Michael Sarah Admitting Provider: Panda Luke Attending physician on admission: Jesus Arevalo Condition: Stable
[2024-10-28 16:31] LABS: Glucose Point of Care 107 mg/dl (65-105)
== END 2024-10-28 18:15 | disposition home or self-care (01) ==
LOC: ANHED 23:20 → ANH3MEDSUR 10-26 02:24
PROVIDERS: Internal Medicine Gastroenterology; Nurse Practitioner Family; Admitting Provider Internal Medicine; Emergency Provider Emergency Medicine; PCP Family Medicine; Visit Provider Family Medicine
PROC: 0DJD8ZZ Inspection of Lower Intestinal Tract, Via Natural or Artificial Opening Endoscopic (ICD-10-PCS; CPT 45330; principal; 2024-10-27 15:30)
DX: K62.5 Hemorrhage of anus and rectum (principal); K64.4 Residual hemorrhoidal skin tags; K64.8 Other hemorrhoids; D64.9 Anemia, unspecified; K62.3 Rectal prolapse; K63.89 Other specified diseases of intestine; D12.3 Benign neoplasm of transverse colon; K59.00 Constipation, unspecified; R73.03 Prediabetes; I10 Essential (primary) hypertension; K21.9 Gastro-esophageal reflux disease without esophagitis; F32.A Depression, unspecified; M88.9 Osteitis deformans of unspecified bone; R25.8 Other abnormal involuntary movements; E66.9 Obesity, unspecified; Z68.30 Body mass index [BMI] 30.0-30.9, adult; Z79.51 Long term (current) use of inhaled steroids; Z79.84 Long term (current) use of oral hypoglycemic drugs; Z79.899 Other long term (current) drug therapy; Z87.891 Personal history of nicotine dependence; Z86.0100 Personal history of colon polyps, unspecified; Z90.49 Acquired absence of other specified parts of digestive tract
CPT/HCPCS: 45385; 36415; 74177; 80048; 80053; 82948; 83605; 83735; 85025; 85027; 85055; 85610; 85730; 86850; 86900; 86901; 88305; 99285; A9270; G0378; J2003; J2270; J2704; J7030; J7120; Q9967

== ENCOUNTER 2025-04-11 13:57 | Emergency (ER) | payer MEDICARE, SELFPAY ==
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
[2025-04-11 14:01] VITALS: BP 114/72; PULSE 88; RESP 18; TEMP 36.8; O2SAT 97
--- NOTE | 2025-04-11 15:38 | ED.GIBLEED ---
HPI - GI Bleed General Chief complaint: GI Bleed <Yessi Rivers PA-C - Last Filed: 04/11/25 15:49> Stated complaint: rectal bleeding today <LANDY Anderson Last Filed: 04/11/25 15:49> Time Seen by Provider: 04/11/25 15:39 <LANDY Anderson Last Filed: 04/11/25 15:49> Focused HPI: Patient is a 74 y/o male who presents to the ED with c/o BRBPR. Reports he has been having rectal bleeding since around 4am after having a BM. States BM was not hard, denied straining, denied pain with BM. States he feels like he is continuously bleeding. Is wearing pad and depends. Hx of hemorrhoids. Hx of GIB in October of this year, admitted for 2-3 days. Patient is not on any anticoagulation. Reports some abdominal discomfort/bloating, nausea. Denies dizziness, lightheadedness. GENERAL: Well-appearing, well-nourished, and in no acute distress. HEAD: Normocephalic, atraumatic. CHEST: Clear to auscultation. ?No respiratory distress. HEART: Regular rate and rhythm.? ABD: No significant focal tenderness. Normoactive BS NEURO: ?Alert and oriented x3. Patient screened in triage and initial orders placed.? ?Additional care and disposition to be based upon?diagnostic testing and treatment. <Yessi Rivers PA-C - Last Filed: 04/11/25 15:49> Source: patient <Yessi Rivers PA-C - Last Filed: 04/11/25 15:49> Mode of arrival: ambulatory <LANDY Anderson Last Filed: 04/11/25 15:49> Limitations: no limitations <LANDY Anderson Last Filed: 04/11/25 15:49> History of Present Illness HPI Narrative: Agree with HPI <Steve Solomon MD - Last Filed: 04/11/25 22:46> Related Data Home medications: Home Medications ?Medication ?Instructions ?Recorded ?Confirmed ?Last Taken ?Type cholecalciferol (vitamin D3) 25 25 mcg PO DAILY 01/04/20 11/30/24 10/24/24 09:00 History mcg (1,000 unit) capsule ferrous sulfate 325 mg (65 mg 325 mg PO DAILY 01/04/20 11/30/24 10/24/24 09:00 History iron) tablet (Feosol) montelukast 4 mg chewable tablet See Rx Instructions PO .COMPLEX 01/04/20 11/30/24 10/25/24 09:00 History sertraline 100 mg tablet 100 mg PO DAILY 01/04/20 11/30/24 10/25/24 09:00 History vitamin B complex (B 1 tablet PO DAILY 01/04/20 11/30/24 10/24/24 09:00 History Complex-Vitamin B12 tablet) albuterol sulfate 90 mcg/actuation 1 puff inhalation BID PRN 10/26/24 11/30/24 Unknown History aerosol inhaler shortness of breath or wheezing hydralazine 25 mg tablet 25 mg PO BID 10/26/24 11/30/24 10/25/24 09:00 History metformin 500 mg tablet,extended 500 mg PO DAILY 10/26/24 11/30/24 10/25/24 09:00 History release 24 hr (Glucophage XR) omeprazole 20 mg capsule,delayed 20 mg PO DAILY 10/26/24 11/30/24 10/25/24 09:00 History release propranolol 10 mg tablet 10 mg PO Q8H 10/26/24 11/30/24 10/25/24 09:00 History rosuvastatin 5 mg tablet 5 mg PO DAILY 10/26/24 11/30/24 10/25/24 09:00 History triamterene 37.5 1 tablet PO DAILY 10/26/24 11/30/24 10/25/24 09:00 History mg-hydrochlorothiazide 25 mg tablet <Yessi Rivers PA-C - Last Filed: 04/11/25 15:49> Allergies/Adverse reactions: Allergies Allergy/AdvReac Type Severity Reaction Status Date / Time lisinopril Allergy Severe Swelling Verified 11/30/24 14:30 Penicillins Allergy Mild swelling Verified 11/30/24 14:30 eyelid, lips and hives <Yessi Rivers PA-C - Last Filed: 04/11/25 15:49> Review of Systems Review of Systems: Gen.: Denies fevers or chills Eyes: Denies eye pain or visual change ENT: Denies congestion Respiratory: Denies shortness of breath or cough CV: Denies chest pain or palpitations GI: Denies abdominal pain nausea, emesis or diarrhea denies burning, urgency, frequency or hematuria Musculoskeletal: Denies back pain or muscle pain Neuro: Denies numbness, tingling, weakness or focal weakness Skin: Denies rash Except as documented, all other systems reviewed and negative <Steve Solomon MD - Last Filed: 04/11/25 22:46> [facility] Past Medical History Medical History: Medical History Depression Borderline diabetes <Yessi Rivers PA-C - Last Filed: 04/11/25 15:49> Surgical History Surgical History: Surgical History History of colonoscopy History of partial colectomy History sigmoidectomy for sigmoid volvulus in 2023 <Yessi Rivers PA-C - Last Filed: 04/11/25 15:49> Social History Social History: Social History Smoking status: Former smoker Do You Feel Safe in your Home?: Yes Lack of Transportation: No Lack of Food: Never True Current Housing: I Have Housing Concerned About Future Housing: No Difficulty Paying Gas/Electric Bills: No Difficulty Paying for Meds: No Currently Unemployed: Decline to Answer Education: Master's Degree or Higher Difficulty w/ Childcare or Family Care: No Spiritual care concerns: No <Yessi Rivers PA-C - Last Filed: 04/11/25 15:49> Exam Narrative: APPEARANCE: No acute distress, nontoxic, resting in bed HEENT: Normocephalic, atraumatic, OMM RESPIRATORY: No respiratory distress CARDIOVASCULAR: Appears well perfused ABDOMINAL: Nondistended Rectal: Multiple small external hemorrhoids that are not thrombosed or bleeding MUSCULOSKELETAl: Moves all extremities. No obvious deformities NEURO: Awake and alert. SKIN:: Warm, dry. No rashes lesions or abrasions PSYCHIATRIC: Normal affect/mood, <Steve Solomon MD - Last Filed: 04/11/25 22:46> Course Vital Signs Vital signs: Vital Signs Temperature 98.3 F 04/11/25 14:01 Pulse Rate 88 04/11/25 14:01 Respiratory Rate 18 04/11/25 14:01 Blood Pressure 114/72 04/11/25 14:01 Pulse Oximetry 97 04/11/25 14:01 Oxygen Delivery Room Air 04/11/25 14:01 Temperature 98.3 F 04/11/25 14:01 Pulse Rate 88 04/11/25 14:01 Respiratory Rate 18 04/11/25 14:01 Blood Pressure 114/72 04/11/25 14:01 Pulse Oximetry 97 04/11/25 14:01 Oxygen Delivery Room Air 04/11/25 14:01 <Yessi Rivers PA-C - Last Filed: 04/11/25 15:49> Vital Signs Temperature 98.3 F 04/11/25 14:01 Pulse Rate 88 04/11/25 14:01 Respiratory Rate 18 04/11/25 14:01 Blood Pressure 114/72 04/11/25 14:01 Pulse Oximetry 97 04/11/25 14:01 Oxygen Delivery Room Air 04/11/25 14:01 Temperature 98.3 F 04/11/25 14:01 Pulse Rate 88 04/11/25 14:01 Respiratory Rate 18 04/11/25 14:01 Blood Pressure 114/72 04/11/25 14:01 Pulse Oximetry 97 04/11/25 14:01 Oxygen Delivery Room Air 04/11/25 14:01 <Steve Solomon MD - Last Filed: 04/11/25 22:46> MDM - GI Bleed MDM Narrative Medical decision making narrative: MSE by MAGY in triage. <Yessi Rivers PA-C - Last Filed: 04/11/25 15:49> MSE by MAGY in triage. 74-year-old male presenting for concerns for rectal bleeding. On evaluation, patient is no acute distress afebrile, hemodynamically stable. Heart and lungs were clear. Abdomen soft and nontender. He did have multiple nonthrombosed external hemorrhoids with no active bleeding at this time. CBC and CMP were without significant abnormalities. CT had been obtained which showed no acute process. Patient was advised to follow-up with GI and with general surgery for further management of his hemorrhoids. Patient was agreeable to this plan. Given strict return precautions. <Steve Solomon MD - Last Filed: 04/11/25 22:46> Differential Diagnosis Differential diagnosis: Likely hemorrhoids, Lower gastrointestinal hemorrhage, hematochezia, melena and anal fissure <Steve Solomon MD - Last Filed: 04/11/25 22:46> Medical Records Attestation: I reviewed the patient's medical records. <Steve Solomon MD - Last Filed: 04/11/25 22:46> Lab Data Attestation: I reviewed the patient's lab results. <Steve Solomon MD - Last Filed: 04/11/25 22:46> Result diagrams: 04/11/25 16:09 04/11/25 16:09 <Yessi Rivers PA-C - Last Filed: 04/11/25 15:49> Labs: Lab Results 04/11/25 Range/Units 16:09 WBC 4.7 (4.5-10.0) K/mm3 RBC 5.21 (4.6-6.20) M/mm3 Hgb 14.0 D (14.0-18.0) g/dL Hct 43.2 (42.0-52.0) % MCV 82.9 (80-100) fl MCH 26.9 (26-34) pg MCHC 32.4 (32-36) g/dl RDW 15.0 H (11.5-14.5) % Plt Count 204 (150-375) k/mm3 MPV 9.6 (7.4-10.4) fl Immature Gran % (Auto) 0.4 (0-0.5) % Neut % (Auto) 70.9 (45.5-73.1) % Lymph % (Auto) 18.9 (18.3-44.2) % [place] % (Auto) 6.4 (2.6-8.5) % Eos % (Auto) 2.8 (0-4.4) % Baso % (Auto) 0.6 (0.2-1.2) % Lymph # (Auto) 0.89 L (0.9-3.2) K/mm3 [place] # (Auto) 0.3 (0.1-0.6) K/mm3 Eos # (Auto) 0.1 (0-0.3) K/mm3 Baso # (Auto) 0.0 (0.0-0.1) K/mm3 Abs Immat Gran (auto) 0.02 (0.00-0.031) K/mm3 Absolute Neuts (auto) 3.3 (1.3-6.7) K/mm3 Absolute Nucleated RBC 0.000 (0.0-0.012) K/mm3 Nucleated RBC % 0.0 (0.0-0.2) % PT 13.1 (11.1-14.7) Seconds INR 1.0 APTT 32.5 (22.3-36.8) Seconds Sodium 134 L (137-145) mmol/L Potassium 3.9 (3.4-5.0) mmol/L Chloride 97 L (98-107) mmol/L Carbon Dioxide 31 H (22-30) mmol/L Anion Gap 6 (4-12) mmol/L BUN 12 (9-20) mg/dL Creatinine 0.76 (0.7-1.3) mg/dL Estim Creat Clear Calc 75 ml/min Estimated GFR > 60 (59 - ) Glucose 115 H (65-110) mg/dL Lactic Acid 0.8 (0.7-2.0) mmol/L Calcium 8.9 (8.4-10.2) mg/dL Total Bilirubin 1.1 (0.2-1.3) mg/dL AST 24 (17-59) U/L ALT 14 (6-50) U/L Alkaline Phosphatase 83 (38-126) U/L Total Protein 7.8 (6.3-8.2) g/dL Albumin 4.2 (3.5-5.1) g/dL Blood Type A Positive Antibody Screen Negative <Yessi Rivers PA-C - Last Filed: 04/11/25 15:49> Lab Results 04/11/25 Range/Units 16:09 WBC 4.7 (4.5-10.0) K/mm3 RBC 5.21 (4.6-6.20) M/mm3 Hgb 14.0 D (14.0-18.0) g/dL Hct 43.2 (42.0-52.0) % MCV 82.9 (80-100) fl MCH 26.9 (26-34) pg MCHC 32.4 (32-36) g/dl RDW 15.0 H (11.5-14.5) % Plt Count 204 (150-375) k/mm3 MPV 9.6 (7.4-10.4) fl Immature Gran % (Auto) 0.4 (0-0.5) % Neut % (Auto) 70.9 (45.5-73.1) % Lymph % (Auto) 18.9 (18.3-44.2) % [place] % (Auto) 6.4 (2.6-8.5) % Eos % (Auto) 2.8 (0-4.4) % Baso % (Auto) 0.6 (0.2-1.2) % Lymph # (Auto) 0.89 L (0.9-3.2) K/mm3 [place] # (Auto) 0.3 (0.1-0.6) K/mm3 Eos # (Auto) 0.1 (0-0.3) K/mm3 Baso # (Auto) 0.0 (0.0-0.1) K/mm3 Abs Immat Gran (auto) 0.02 (0.00-0.031) K/mm3 Absolute Neuts (auto) 3.3 (1.3-6.7) K/mm3 Absolute Nucleated RBC 0.000 (0.0-0.012) K/mm3 Nucleated RBC % 0.0 (0.0-0.2) % PT 13.1 (11.1-14.7) Seconds INR 1.0 APTT 32.5 (22.3-36.8) Seconds Sodium 134 L (137-145) mmol/L Potassium 3.9 (3.4-5.0) mmol/L Chloride 97 L (98-107) mmol/L Carbon Dioxide 31 H (22-30) mmol/L Anion Gap 6 (4-12) mmol/L BUN 12 (9-20) mg/dL Creatinine 0.76 (0.7-1.3) mg/dL Estim Creat Clear Calc 75 ml/min Estimated GFR > 60 (59 - ) Glucose 115 H (65-110) mg/dL Lactic Acid 0.8 (0.7-2.0) mmol/L Calcium 8.9 (8.4-10.2) mg/dL Total Bilirubin 1.1 (0.2-1.3) mg/dL AST 24 (17-59) U/L ALT 14 (6-50) U/L Alkaline Phosphatase 83 (38-126) U/L Total Protein 7.8 (6.3-8.2) g/dL Albumin 4.2 (3.5-5.1) g/dL Blood Type A Positive Antibody Screen Negative <Steve Solomon MD - Last Filed: 04/11/25 22:46> Imaging Data Attestation: I personally reviewed and interpreted this imaging study as follows: <Steve Solomon MD - Last Filed: 04/11/25 22:46> Radiologist's impression: Impressions Abdomen/Pelvis CT 04/11/25 17:08 IMPRESSION: 1. No acute intra-abdominal/pelvic process. 2. Unchanged focal dilation of a short segment of the sigmoid colon on either side of an anastomotic suture line. No dilation of the more proximal bowel to suggest obstruction. 3. Cholelithiasis. 4. 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 <Steve Solomon MD - Last Filed: 04/11/25 22:46> Discharge Plan Discharge Clinical Impression: External hemorrhoids <Yessi Rivers PA-C - Last Filed: 04/11/25 15:49> Patient Disposition: Home <Yessi Rivers PA-C - Last Filed: 04/11/25 15:49> Condition: Stable <LANDY Anderson Last Filed: 04/11/25 15:49> Instructions: Antibiotic Form, Hemorrhoids (ED) <LANDY Anderson Last Filed: 04/11/25 15:49> Additional Instructions: Call General surgery and Gastroenterology to discuss your hemorrhoids. Apply pressure if the begin to bleed. Return to the ED for any new or worsening symptoms. <LANDY Anderson Last Filed: 04/11/25 15:49> Patient Language: Chinese <Yessi Rivers PA-C - Last Filed: 04/11/25 15:49> Prescriptions: No Action sertraline 100 mg tablet 100 mg PO DAILY montelukast 4 mg tablet,chewable See Rx Instructions PO .COMPLEX Rx Instructions: PO; vitamin B complex [B Complex-Vitamin B12] Tablet 1 tablet PO DAILY cholecalciferol (vitamin D3) 25 mcg (1,000 unit) capsule 25 mcg PO DAILY ferrous sulfate [Feosol] 325 mg (65 mg iron) tablet 325 mg PO DAILY hydrocortisone [Anusol-HC] 2.5 % cream with perineal applicator 1 applic RECTAL QHS PRN (Reason: hemorrhoids) Qty: 30 0RF albuterol sulfate 90 mcg/actuation HFA aerosol inhaler 1 puff inhalation BID PRN (Reason: shortness of breath or wheezing) hydralazine 25 mg tablet 25 mg PO BID triamterene-hydrochlorothiazid 37.5-25 mg tablet 1 tablet PO DAILY rosuvastatin 5 mg tablet 5 mg PO DAILY omeprazole 20 mg capsule,delayed release(DR/EC) 20 mg PO DAILY metformin [Glucophage XR] 500 mg tablet extended release 24 hr 500 mg PO DAILY propranolol 10 mg tablet 10 mg PO Q8H Preparation H ([place] Xenia) 50 % Pads, Medicated 1 pad topical PRN PRN (Reason: Perineal Discomfort) Qty: 30 0RF <Yessi Rivers PA-C - Last Filed: 04/11/25 15:49> Follow-up/Referrals: Tiffanie Min MD [Physician, General Surgery] Sofia,Michael Sarah MD [Primary Care Provider, Unknown] Anjum Mace MD [Physician, Gastroenterology] <Yessi Rivers PA-C - Last Filed: 04/11/25 15:49>
[2025-04-11 16:20] LABS: Hematocrit 43.2 % (42.0-52.0); Hemoglobin 14.0 g/dL (14.0-18.0); Immature Granulocyte Percent A 0.4 % (0-0.5); Lymphocytes Absolute Auto 0.89 K/mm3 (0.9-3.2); Mean Corpuscular HGB Conc 32.4 g/dl (32-36); Mean Corpuscular Hemoglobin 26.9 pg (26-34); Mean Corpuscular Volume 82.9 fl (80-100); Nucleated Red Blood Cells Absolute Auto 0.000 K/mm3 (0.0-0.012); Nucleated Red Blood Cells Perc 0.0 % (0.0-0.2); Platelet Count Result 204 k/mm3 (150-375); Red Blood Count 5.21 M/mm3 (4.6-6.20); White Blood Count 4.7 K/mm3 (4.5-10.0)
[2025-04-11 16:31] LABS: INR 1.0; Prothrombin Time 13.1 Seconds (11.1-14.7)
[2025-04-11 16:32] LABS: Alanine Aminotransferase 14 U/L (6-50); Albumin Level 4.2 g/dL (3.5-5.1); Alkaline Phosphatase 83 U/L (38-126); Anion Gap 6 mmol/L (4-12); Aspartate Amino Transferase 24 U/L (17-59); Bilirubin,Total 1.1 mg/dL (0.2-1.3); Blood Urea Nitrogen 12 mg/dL (9-20); Calcium 8.9 mg/dL (8.4-10.2); Carbon Dioxide 31 mmol/L (22-30); Chloride 97 mmol/L (98-107); Estimated CRCL calculation 75 ml/min; Estimated Glomerular Filt Rate > 60; Glucose 115 mg/dL (65-110); Potassium 3.9 mmol/L (3.4-5.0); Sodium 134 mmol/L (137-145); Total Protein 7.8 g/dL (6.3-8.2)
[2025-04-11 16:37] LABS: Partial Thromboplastin Time 32.5 Seconds (22.3-36.8)
--- OUTSIDE RECORDS SUMMARY | 2025-04-11 19:19 | XMS_ITS | Clinical Summary ---
Author Organization [facility] Address [address] [place] [address] Care Team Providers Care Artificial Foliage Arranger Name Role Phone BlackMichael walker Primary Care Provider [phone] Allergies Active Allergy Reactions Criticality Noted Date [...] CDT Gender Identity Male 07/30/2021 4:25 AM SUBSTATION MECHANIC Sexual Orientation Straight 07/30/2021 4: 25 AM SUBSTATION MECHANIC Last Filed Vital Signs Vital Sign Reading Time Taken Comments Blood Pressure 145/87 07/30/2021 11:30 AM SUBSTATION MECHANIC Pulse 77 07/30/2021 11:02 AM SUBSTATION MECHANIC Temperature 36.4 C (97.6 F) 07/30/2021 11:02 AM SUBSTATION MECHANIC Respiratory Rate 18 02/19/2018 4:55 PM CDT Oxygen Saturation 94% 07/30/2021 11:02 AM SUBSTATION MECHANIC Room Air Inhaled Oxygen Concentration - - Weight 109.8 kg (242 lb) 02/20/2022 11:14 AM CDT Height 177.8 cm (5' 10) 02/20/2022 11:14 AM CDT Body Mass Index [...] 2 - Td or Tdap) 06/23/2020 06/23/2010 RSV Immunization or 60+ Years (1 - 1-dose 75+ series) 2024 COVID-19 Vaccine (1 - 2023-2 5 season) 2025 Influenza Adult (#1) 2025 04/23/2019 Hepatitis A Vaccines Aged Out No long er eligible based on patient's age to complete this topic Meningococcal B Vaccine Aged Out No l onger eligible based on patient's age to complete this topic Meningococcal Vaccine Aged Out No maia keke eligible based on patient's age to complete this topic RSV Immunizations Under 20 Months Aged Out No longer eligible based on patient's age to complete this topic Insurance Advance Directives * Full Code (Latest Code Status on File) Date Activated Date Inactivated Comments 02/19/2018 3:54 PM 02/19/2018 7:12 PM * Full Code Date Activated Date Inactivated Comments 02/19/2018 1:05 PM 02/19/2018 3:54 PM Care Teams Artificial Foliage Arranger Relationship Specialty Start Date End Date Michael Black DO [address] [place], [place] [id number] PCP - General FAMILY PRACTICE 02/05/18
--- OUTSIDE RECORDS SUMMARY | 2025-04-11 19:19 | XMS_ITS | Data Portability ---
Author Organization [place] - [facility], Main Office Address [address] [facility] [address] [place] [address] Care Team Providers Care Heading Up Machine Operator Name Role Phone VIANEY SILVA Primary Care [...] 5mg/li do10mg supp 019 08/27/19 19 INTERFACE [facility], [address], [place], [place], [phone], 9 20:15:58 Patient TargetsNo targets recorded. Patient [...] today's visit I spent a total of 45 minutes [id number] with the patient and over 50% of [...] Address Organization Details Recorded Time External hemorrhoids 23027270 Active 2012 Perlita Devlin [facility] 15:03:30 Pile easily reducible 577649434 Active 2012 Tx #1: 07/28/12 1.2 x [...] 10 RPTx #14: 08/26/18 1.2 x 9 LL: No Tx - He needs [facility] 9 15:03:30 Constipation 38715150 Active 2018 Delfina Woods MD [address] [place] [address],[address], [place], [address], [facility] 9 20:49:49 History of polyp of colon 421530911 Active 2018 Perlita corado [facility] [place] 9 15:03:30 Pile reducible with difficulty 767648086 Active 2018 Perlita corado [facility] 9 15:03:30 Problem Notes None recorded. Procedures Surgical History Date Name Laterality Status Provider Name and Address Organization Details Recorded Time 9 Colonoscopy completed Delfina Woods MD [address] [place] [address],[address], [place], [address], [facility] 05/24/2019 19:38:37 9 IRC completed Delfina Woods MD [address] [place] [address],[address], [place], [address], [facility] [place] 08/26/2018 20:13:18 9 [place] [address] [place] [address],[address], [place], [place], [address] [place] [address], [facility] [place] 07/30/2018 16:23:44 9 IRC completed Delfina Woods MD [address] [place] [address],[address], [place], [place], [address] [place] [address], [facility] [place] 07/05/2018 20:46:21 6 Colonoscopy completed Delfina Woods MD [address] [place] [address],[address], [place], [place], [address] [place], [place] [address]oid [facility] 07/05/2018 20:42:51 1 Colonoscopy completed Delfina Woods MD [address] [place] [address],[address], [place], [place], [address] [place] [address] Hemorrh[facility] 06/29/2018 18:48:27 Imaging Results None recorded. Procedure Notes None recorded. Medical Equipment None Reported. Allergies Allergen ID Allergen Name Allergen Category Reaction Reaction Severity Criticality Documentation Date Start Date Code Code System Note Provider Name and Address Organization Details Recorded Time 1895 Product containin g penicilli n (product) medicatio n Not available Not available Not available 2018 64825 8001 SNOMED Perlita Devlin [facility] [place] 9 15:34:55 Medications Name Sig Start Date Stop Date Status Note LastModified by Organization Details LastModified Time [id number] Insert 1 suppository rectally TID prn 2018 [...] Body temperature Respiratory rate Heart rate Systolic And Diastolic Provider Name and Address Organization Details Last Updated DateTime 9 682191. 08 g 33.8 kg/m2 177.8 cm 97.9 [degF] 16 /min 73 /min 140/80 mm[Hg] [facility] 9 15:45:01 Date Recorded Body height Provider Name an d Address Organization Details Last Updated DateTime 07/30/2018 177.8 cm [facility] 07/30/2018 14:59:54 Date Recorded Body height Provider Name an d Address Organization Details Last Updated DateTime 08/26/2018 177.8 cm Vicoral Rojas [facility] 08/26/2018 15:34:24 Date Recorded Body height Provider Name an d Address Organization Details Last Updated DateTime 10/21/2018 177.8 cm Perlitashanna PedrazaDevlin [facility] 10/21/2018 14:53:01 Social History Question Answer Notes LastModified by Organizat ion Details LastModified Time Tobacco Smoking Status Former Smoker Quit 1988 Perlita Devlin [facility] 2018 15:38:41 How Much Tobacco Do You Chew? None [email or web address] Information not available 2018 Tobacco Amount/Day 2 Packs [email or web address] Information not available 2018 Alcohol Use Yes [email or web address] Information not available 2018 Alcohol Amount Occasional [email or web address] Information not available 2018 Caffeine Use No [email or web address] Informatio n not available 2018 Caffeine Type Coffee Informati on not available 2018 Caffeine Amount 2c/day [email or web address] Information not available 2018 Illicit Drug Use No [email or web address] Information not available 2018 Type Of Tobacco Cigs Information not available 2018 What Was The Date Of Your Most Recent Tobacco Screening? 10/21/2018 Information not available 01/14/2019 How Many Years Have You Smoked Tobacco? 19 [email or web address] Information not available 2018 Sex: Unknown Functional Status None recorded. Mental Status None recorded. Family History Relationship Description Onset Age of this Age Resolved Age Notes LastModified by Organization Details LastModified Time Mother Malignant neoplasm of breast 42 46 [email or web address] Not available 03/2019 15:38:08 Brother Malignant neoplasm of brain 68 68 [email or web address] Not available 03/2019 15:38:22 Medical History Condition Response Anxiety Disorder Y Reflux/GERD Y Sleep Apnea Y Hypertension Y Colon/Rectal Polyps Y Asthma Y Past Encounters Encounter ID Performer Location Encounter Start Date Encounter Closed Date Diagnosis/Indication Diagnosis SNOMED-CT Code Diagnosis ICD10 Code Diagnosis IMO Codes Diagnosis Note [id number] Delfina Woods MD Main Office [address] [facility] [address] [place] [address] 2018 15:26:29 2018 16:49:11 Pile easily reducible 659614861 K64.1 Stage 2 - 3 internal hemorrhoid [...] LL internal hemorrhoid . External hemorrhoids 239 75363 K64.4 These will improve with IRC. He understand s the only way to directly treat external hemorrhoid s would be with surgery and he does not wish to pursue this and his hemorrhoid s are not bad enough to require surgery. Constipation 95634390 K5 9.00 He of course needs to be eating a high fiber diet and drinking plenty of water. I reviewed the different fibers, stool softeners (docusate and Miralax) and stimulant laxatives (senna and bisacodyl - he should avoid taking these). He should take a stool softener and/or fiber to maintain soft BM's. History of polyp of colon 791637016 Z86.010 He thinks he is due for a colonoscop y this year. [id number] Delfina Woods MD Main Office [address] [facility] [address] [place] [address] 07/30/2018 14:59:25 07/30/2018 15:59:10 Pile easily reducible 856515959 K64.1 Stage 2 - 3 internal hemorrhoid s: He is doing fairly well with IRC. His 13th overall (2nd in this series) treatment was done today on his RP internal hemorrhoid . External hemorrhoids 239 71275 K64.4 These will hopefully improve with IRC. He understand s the only way to directly treat external hemorrhoid s would be with surgery and he does not wish to pursue this and his hemorrhoid s are not bad enough to require surgery. Constipation 09095538 K5 9.00 He of course needs to be eating a high fiber diet and drinking plenty of water. For now he is going to just try to concentrat e on his diet. History of polyp of colon 829982161 Z86.010 He thinks he is due for a colonoscop y this year. [id number] Delfina Woods MD Main Office [address] [facility] [address] [place] [address] 08/26/2018 15:33:42 08/26/2018 16:14:34 Pile easily reducible 683506455 K64.1 Stage 2 - 3 internal hemorrhoid s: He is doing fairly well with IRC. His 14th overall (3rd in this series) treatment was done today on his LL internal hemorrhoid . External hemorrhoids 239 50865 K64.4 Improved with IRC. He wanted to try the compounded hydrocorti sone/lidoc marco antonio suppositor ies. Constipation 01738977 K5 9.00 He of course needs to be eating a high fiber diet and drinking plenty of water. He should continue with the Bene Fiber. I wrote down docusate 100 mg gel caps - he can take up to 3 daily if needed. [id number] Delfina Woods MD Main Office [address] [facility] [address] [place] [address] 10/21/2018 14:48:38 10/21/2018 15:37:38 Pile reducible with difficulty 172308907 K64.2 I discussed with him that even [...] him if there are any surgeons in [place] that he could see (I am not aware of any colon and rectal surgeons but do know there are some general surgeons who do hemorrhoid ectomies). I asked him to let me know who he ends up seeing so I can get records to them. Constipation 67839013 K5 9.00 He of course needs to be eating a high fiber diet and drinking plenty of water. He should continue with the Bene Fiber. He also needs to get the docusate 100 mg gel caps that we have discussed on his previous visits - he can take up to 3 daily if needed. History of polyp of colon 080839919 Z86.010 He thinks he is due for a colonoscop y this year. I advised he needs to discuss this with his PCP when he has his visit in a couple of weeks. Health Concerns Section Related Observation LastModified by Organization Detai ls LastModified Time None Recorded Concern Status LastModified by Organization Details LastModified Time None Recorded Advance Directives Directive None Recorded Payers Insurance Date Sequence Insurance Name Policy Number Policy Briseno Covered Member ID Briseno Member ID Guarantor Name 10/21/2018 1 [employer] (MEDICARE REPLACEMENT/A DVANTAGE - HMO) [id number] Wayne Baez Cece [id number] Wayne Baez Cece Notes Date Note Type Note Provider Name and Address Organization Details Recorded Time 2018 text/html ROS as noted in the HPI See previous visits. He has been doing [...] Hemorrhoid Treatment: He has only had the [facility] treatments here. Previous Lower GI Endoscopy: He [...] he is not sure. Delfina Woods MD [address] [facility],[address], [place], [address], [facility] 07/05/2018 20:56:15 07/30/2018 text/html Follow up: He [...] eat at 8 pm. Delfina Woods MD [address] [place] [address],[address], [place], [address], [facility] 07/30/2018 16:26:40 08/26/2018 text/html Follow up: He has still had discomfort with BM's and some [...] [place] [address] [place] [address],[address], [place], [address], [facility] [place] 08/26/2018 20:16:42 10/21/2018 text/html Follow up: See last visit and phone note from 08/31/18. He states that the heavy bleeding did stop after the 2 episodes. He did go to the ER but states they didn't really do anything. He has had light bleeding with BM's [...] be somewhat firm. Delfina Woods MD [address] [facility],[address], [place], [address], [facility] 10/21/2018 21:41:09
== END 2025-04-11 18:38 | disposition home or self-care (01) ==
LOC: ANHED 18:25
PROVIDERS: Physician Assistant; Emergency Provider Student in an Organized Health Care Education/Training Program; PCP Family Medicine
DX: K64.4 Residual hemorrhoidal skin tags (principal); F32.A Depression, unspecified
CPT/HCPCS: 36415; 74177; 80053; 83605; 85025; 85610; 85730; 86850; 86900; 86901; 99284; Q9967